=== PATIENT | male | born 1935 | race Caucasian/White ===

== ENCOUNTER 2017-03-03 18:13 | Emergency (ER) | payer OTHER, MEDICARE ==
[2017-03-03] MEDS ORDERED: LIDOCAINE 1% INJ-PF (10 MG/ML) 30 ML SDV INJ ONE (18:49)
--- NOTE | 2017-03-03 18:49 | ER Document Report ---
ED General - General Chief Complaint: Fall Stated Complaint: NOSE INJURY Time Seen by Provider: 03/03/17 18:49 Mode of Arrival: Ambulatory Information source: Patient Notes: 81-year-old male presents after mechanical fall injuring his nose. Patient notes that he has no chest pain or shortness breath no neck pain no back pain and any other complaints. Patient's only concern is laceration of the nose Patient does not want any imaging or any other workup TRAVEL OUTSIDE OF THE [place] IN LAST 30 DAYS: No - HPI Onset: Just prior to arrival Onset/Duration: Sudden Quality of pain: No pain Severity: Mild Pain Level: Denies Associated symptoms: Other Exacerbated by: Denies Relieved by: Denies Similar symptoms previously: No Recently seen / treated by doctor: No - Related Data Allergies/Adverse Reactions: Sulfa (Sulfonamide Antibiotics) Allergy (Severe, Verified 03/03/17 18:20) Unable to urinate Past Medical History - Social History Smoking Status: Never Smoker Cigarette use (# per day): No Chew tobacco use (# tins/day): No Smoking Education Provided: No Family History: Reviewed & Not Pertinent - Past Medical History Cardiac Medical History: Reports: Hx Heart Attack - 1981, Hx Hypertension - MEDICATED Pulmonary Medical History: Denies: Hx Asthma, Hx Bronchitis, Hx COPD, Hx Pneumonia Neurological Medical History: Denies: Hx Cerebrovascular Accident, Hx Seizures Renal/ Medical History: Denies: Hx Peritoneal Dialysis Malignancy Medical History: Reports Hx Prostate Cancer GI Medical History: Denies: Hx Hepatitis, Hx Hiatal Hernia, Hx Ulcer Musculoskeltal Medical History: 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 Denies: Hx Pacemaker - Immunizations Hx Diphtheria, Pertussis, Tetanus Vaccination: Yes Review of Systems - Review of Systems Notes: REVIEW OF SYSTEMS: CONSTITUTIONAL : Denies fever, chills, or sweats. Denies recent illness. EENT: nose injury CARDIOVASCULAR: Denies chest pain. Denies palpitations or racing or irregular heart beat. Denies ankle edema. RESPIRATORY: Denies cough, cold, or chest congestion. Denies shortness of breath, difficulty breathing, or wheezing. GASTROINTESTINAL: Denies abdominal pain or distention. Denies nausea, vomiting , or diarrhea. Denies blood in vomitus, stools, or per rectum. Denies black, tarry stools. Denies constipation. GENITOURINARY: Denies difficulty urinating, painful urination, burning, frequency, blood in urine, or discharge. MUSCULOSKELETAL: Denies back or neck pain or stiffness. Denies joint pain or swelling. SKIN: Denies rash, lesions or sores. HEMATOLOGIC : Denies easy bruising or bleeding. LYMPHATIC: Denies swollen, enlarged glands. NEUROLOGICAL: Denies confusion or altered mental status. Denies passing out or loss of consciousness. Denies dizziness or lightheadedness. Denies headache. Denies weakness or paralysis or loss of use of either side. Denies problems with gait or speech. Denies sensory loss, numbness, or tingling. Denies seizures. PSYCHIATRIC: Denies anxiety or stress. Denies depression, suicidal ideation, or homicidal ideation. ALL OTHER SYSTEMS REVIEWED AND NEGATIVE. Dictation was performed using [employer] voice recognition software PHYSICAL EXAMINATION: GENERAL: Well-appearing, well-nourished and in no acute distress. HEAD: Atraumatic, normocephalic. EYES: Pupils equal round and reactive to light, extraocular movements intact, sclera anicteric, conjunctiva are normal. ENT:laceration nose NECK: Normal range of motion, supple without lymphadenopathy LUNGS: Breath sounds clear to auscultation bilaterally and equal. No wheezes rales or rhonchi. HEART: Regular rate and rhythm without murmurs ABDOMEN: Soft, nontender, nondistended abdomen. No guarding, no rebound. No masses appreciated. Musculoskeletal: Normal range of motion, no pitting or edema. No cyanosis. NEUROLOGICAL: Cranial nerves grossly intact. Normal speech, normal gait. Normal sensory, motor exams PSYCH: Normal mood, normal affect. SKIN: laceration of the left nostril Physical Exam - Vital signs Vitals: Temp Pulse Resp BP Pulse Ox 97.7 F 72 18 157/69 H 97 03/03/17 18:18 03/03/17 18:18 03/03/17 18:18 03/03/17 18:18 03/03/17 18:18 Course - Re-evaluation Re-evalutation: 03/03/17 19:43 Patient does not want any imaging or other workup, he requests only repair of his nose, 3 sutures were placed, patient has been given very strict return precautions regarding infectious process After performing a Medical Screening Examination, I estimate there is LOW risk for OPEN FRACTURE, COMPARTMENT SYNDROME, TENDON RUPTURE, ACUTE NEUROVASCULAR INJURY, or RETAINED FOREIGN BODY, thus I consider the discharge disposition reasonable. Also, there is no evidence or peritonitis, sepsis, or toxicity. I have reevaluated this patient multiple times and no significant life threatening changes are noted. The patient and I have discussed the diagnosis and risks, and we agree with discharging home with close follow-up with the understanding that symptoms and presentations can change. We also discussed returning to the Emergency Department immediately if new or worsening symptoms occur. We have discussed the symptoms which are most concerning (e.g., changing or worsening pain, fever, numbness, weakness, cool or painful digits) that necessitate immediate return. - Vital Signs Vital signs: Temp Pulse Resp BP Pulse Ox 97.7 F 72 18 157/69 H 97 03/03/17 18:18 03/03/17 18:18 03/03/17 18:18 03/03/17 18:18 03/03/17 18:18 Procedures - Laceration/Wound Repair Left Face Time completed: 19:20 Wound length (cm): 1.3 Wound's Depth, Shape: Irregular, Flap Laceration pre-procedure: Sterile PPE donned, Sterile drapes applied, Shur- Clens applied Anesthetic type: 1% Lidocaine Volume Anesthetic (mLs): 3 Wound explored: Clean, No foreign body removed Irrigated w/ Saline (mLs): 500 Wound Debrided: Minimal Wound Repaired With: Sutures Suture Size/Type: 6:0, Ethilon Number of Sutures: 3 Post-procedure wound care: Sterile dressing applied Post-procedure NV exam normal: Yes Complications: No Discharge - Discharge Clinical Impression: Laceration of nose Qualifiers: Encounter type: initial encounter Qualified Code(s): S01.21XA - Laceration without foreign body of nose, initial encounter Condition: Stable Disposition: HOME, SELF-CARE Instructions: Laceration Care ([facility]) Additional Instructions: Follow-up in 5 days for removal screws or immediately if there is any sign of infection or any other concerns
[2017-03-03 20:17] VITALS: BP 130/82
== END 2017-03-03 20:15 | disposition home or self-care (01) ==
LOC: ER 18:13
PROC: 0HQ1XZZ Repair Face Skin, External Approach (ICD-10-PCS; principal; 2017-03-03)
DX: S01.21XA Laceration without foreign body of nose, initial encounter (principal); W01.0XXA Fall on same level from slipping, tripping and stumbling without subsequent striking against object, initial encounter; I10 Essential (primary) hypertension; I25.2 Old myocardial infarction; Z88.2 Allergy status to sulfonamides; Z95.1 Presence of aortocoronary bypass graft; Z85.46 Personal history of malignant neoplasm of prostate
CPT/HCPCS: 99283

== ENCOUNTER 2017-03-08 10:26 | Emergency (ER) | payer MEDICARE, OTHER ==
--- NOTE | 2017-03-08 11:32 | ER Document Report ---
ED Suture/Wound Recheck - General Chief Complaint: Suture Removal Stated Complaint: SUTURE REMOVAL Time Seen by Provider: 03/08/17 10:55 Mode of Arrival: Ambulatory Information source: Patient Notes: 81-year-old male presents to ED for removal of 3 sutures from his left nare. The sutures were placed 5 days ago when he had a laceration. Skin is well approximated no signs or symptoms of infection we will remove the sutures TRAVEL OUTSIDE OF THE [place] IN LAST 30 DAYS: No - HPI Previous ED treatment: Laceration repair Quality of pain: No pain Severity: None Pain Level: Denies Symptoms since procedure: No complaints Exacerbated by: Denies Relieved by: Denies - Related Data Allergies/Adverse Reactions: Sulfa (Sulfonamide Antibiotics) Allergy (Severe, Verified 03/03/17 18:20) Unable to urinate Past Medical History - General Information source: Patient - Social History Smoking Status: Never Smoker Cigarette use (# per day): No Chew tobacco use (# tins/day): No Smoking Education Provided: No Frequency of alcohol use: None Drug Abuse: None Lives with: Family Family History: Reviewed & Not Pertinent Patient has suicidal ideation: No Patient has homicidal ideation: No - Past Medical History Cardiac Medical History: Reports: Hx Heart Attack - 1981, Hx Hypertension - MEDICATED Pulmonary Medical History: Reports: None EENT Medical History: Reports: None Endocrine Medical History: Reports: None Renal/ Medical History: Reports: None Malignancy Medical History: Reports Hx Prostate Cancer GI Medical History: Reports: None Musculoskeltal Medical History: 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 Denies: Hx Hepatitis Past Surgical History: Reports: Hx Abdominal Surgery - hernia, colonoscopy, Hx Appendectomy, Hx Cardiac Surgery - CABG X 3, stent, cardiac cath, Hx Open Heart Surgery - TRIPLE BYPASS, Hx Orthopedic Surgery - left knee, right and left ankle , Hx Testicular Surgery - vasectomy, Hx Tonsillectomy - Immunizations Hx Diphtheria, Pertussis, Tetanus Vaccination: Yes Review of Systems - Review of Systems Constitutional: No symptoms reported EENT: No symptoms reported Cardiovascular: No symptoms reported Respiratory: No symptoms reported Gastrointestinal: No symptoms reported Genitourinary: No symptoms reported Male Genitourinary: No symptoms reported Musculoskeletal: No symptoms reported Skin: Other - 3 sutures in the left nare will remove Hematologic/Lymphatic: No symptoms reported Neurological/Psychological: No symptoms reported -: Yes All other systems reviewed and negative Physical Exam - Vital signs Vitals: Temp Pulse Resp BP Pulse Ox 97.3 F 87 16 135/96 H 98 03/08/17 10:40 03/08/17 10:40 03/08/17 10:40 03/08/17 10:40 03/08/17 10:40 Interpretation: Normal - General General appearance: Appears well, Alert - HEENT Head: Normocephalic, Atraumatic Eyes: Normal Pupils: PERRL - Respiratory Respiratory status: No respiratory distress Chest status: Nontender Breath sounds: Normal Chest palpation: Normal - Cardiovascular Rhythm: Regular Heart sounds: Normal auscultation Murmur: No - Abdominal Inspection: Normal Distension: No distension Bowel sounds: Normal Tenderness: Nontender Organomegaly: No organomegaly - Back Back: Normal, Nontender - Extremities General upper extremity: Normal inspection, Nontender, Normal color, Normal ROM , Normal temperature General lower extremity: Normal inspection, Nontender, Normal color, Normal ROM , Normal temperature, Normal weight bearing. No: Linus's sign - Neurological Neuro grossly intact: Yes Cognition: Normal Orientation: AAOx4 [place] Coma Scale Eye Opening: Spontaneous [place] Coma Scale Verbal: Oriented [place] Coma Scale Motor: Obeys Commands [place] Coma Scale Total: 15 Speech: Normal Motor strength normal: LUE, RUE, LLE, RLE Sensory: Normal - Psychological Associated symptoms: Normal affect, Normal mood - Skin Skin Temperature: Warm Skin Moisture: Dry Skin Color: Normal Location of irregularity: Face - Sutures intact skin healing well will remove sutures and applied Steri-Strips patient given instructions for care of Steri- Strips. Course - Re-evaluation Re-evalutation: 03/08/17 11:33 3 sutures removed patient tolerated well area was cleaned well Steri-Strip strips applied patient given instructions on Steri-Strip and told that he did not need to return unless there was signs or symptoms of infection. - Vital Signs Vital signs: Temp Pulse Resp BP Pulse Ox 97.3 F 87 16 135/96 H 98 03/08/17 10:40 03/08/17 10:40 03/08/17 10:40 03/08/17 10:40 03/08/17 10:40 Discharge - Discharge Clinical Impression: Visit for suture removal Condition: Stable Disposition: HOME, SELF-CARE Instructions: Suture Removal, Family Physicians / Practices Additional Instructions: Care of Steri-Strip Closure Your cut has been closed up with a special surgical tape. For this type of cut, it can replace stitches. You must protect the wound just as you would with stitches, however. For the first few days, keep the wound area completely dry. This also means you should avoid activity which makes you sweat. Do not move the area if motion stretches or wrinkles the strips. Don't allow the area to be bumped -- if bleeding occurs, the blood can make the strips loosen. The strips are somewhat waterproof. After a few days, the physician may allow you to shower. Be sure to ask if it's OK. Do not remove the tape until it peels off by itself. At that time, the wound should be healed. FOLLOW-UP CARE: If you have been referred to a physician for follow-up care, call the physician s office for an appointment as you were instructed or within the next two days. If you experience worsening or a significant change in your symptoms, notify the physician immediately or return to the Emergency Department at any time for re-evaluation. Forms: Elevated Blood Pressure
[2017-03-08 11:36] VITALS: BP 134/51
== END 2017-03-08 11:34 | disposition home or self-care (01) ==
LOC: ER 10:26
DX: S01.21XD Laceration without foreign body of nose, subsequent encounter (principal); X58.XXXD Exposure to other specified factors, subsequent encounter; I25.2 Old myocardial infarction; I10 Essential (primary) hypertension; Z88.2 Allergy status to sulfonamides; Z85.46 Personal history of malignant neoplasm of prostate

== ENCOUNTER → 2017-08-09 | Outpatient (CLI) | payer MEDICARE, OTHER ==
[2017-08-09 16:22] LABS: ABSOLUTE EOSINOPHILS # (AUTO) 0.1 10^3/uL (0.0-0.6); ABSOLUTE LYMPHOCYTES (AUTO) 1.6 10^3/uL (0.5-4.7); ABSOLUTE MONOCYTES (AUTO) 0.8 10^3/uL (0.1-1.4); ABSOLUTE NEUT (AUTO) 4.7 10^3/uL (1.7-8.2); BASOPHILS % (AUTO) 0.6 % (0-2); EOSINOPHILS % (AUTO) 1.6 % (0-6); HEMATOCRIT 45.4 % (37.9-51.0); LYMPHOCYTES % (AUTO) 22.7 % (13-45); MEAN CORPUSCULAR HEMOGLOBIN 31.4 pg (27.0-33.4); MEAN CORPUSCULAR VOLUME 95 fl (80-97); MONOCYTES % (AUTO) 10.6 % (3-13); PLATELET COUNT 117 10^3/uL (150-450); RED BLOOD COUNT 4.77 10^6/uL (4.35-5.55); RED CELL DISTRIBUTION WIDTH 14.8 % (11.5-14.0); SEGMENTED NEUTROPHILS % (AUTO) 64.5 % (42-78); TOTAL CELLS COUNTED % (AUTO) 100 %; WHITE BLOOD COUNT 7.2 10^3/uL (4.0-10.5)
[2017-08-09 16:36] LABS: ANION GAP 9 (5-19); BLOOD UREA NITROGEN 22 mg/dL (7-20); CALCIUM 9.5 mg/dL (8.4-10.2); CARBON DIOXIDE 27 mmol/L (22-30); CHLORIDE 107 mmol/L (98-107); GLUCOSE 85 mg/dL (75-110); POTASSIUM 5.1 mmol/L (3.6-5.0); SODIUM 143.2 mmol/L (137-145)
== END ==
LOC: OD 15:04
PROVIDERS: ATTEND Internal Medicine Cardiovascular Disease
DX: I25.10 Atherosclerotic heart disease of native coronary artery without angina pectoris (principal)
CPT/HCPCS: 36415; 80048; 85025

== ENCOUNTER 2017-12-14 05:30 | Day surgery (SDC) | payer MEDICARE, OTHER ==
[2017-12-10 09:47] LABS: APPEARANCE,URINE CLEAR; BILIRUBIN,URINE NEGATIVE (NEGATIVE); COLOR,URINE YELLOW; GLUCOSE, URINE NEGATIVE (NEGATIVE); KETONES,URINE NEGATIVE (NEGATIVE); LEUKOCYTE ESTERASE,URINE NEGATIVE (NEGATIVE); NITRITE,URINE NEGATIVE (NEGATIVE); PROTEIN,URINE NEGATIVE (NEGATIVE); URINE SPECIFIC GRAVITY 1.013; UROBILINOGEN,URINE NEGATIVE mg/dL (<2.0)
--- NOTE | 2017-12-10 09:54 | EKG REPORT ---
SEVERITY:- ABNORMAL ECG - ATRIAL FIBRILLATION VENTRICULAR PREMATURE COMPLEX IVCD, CONSIDER ATYPICAL RBBB PROBABLE INFERIOR INFARCT, OLD : Confirmed by: Reza Davis 10-Dec-2017 09:53:05
--- NOTE | 2017-12-10 09:56 | RADIOLOGY REPORT (SQ) ---
EXAM DESCRIPTION: CHEST PA/LATERAL COMPLETED DATE/TIME: 12/10/2017 9:25 am REASON FOR STUDY: PRE-OP COMPARISON: AP chest 04/12/2011, 11/10/2014 CT angio chest 04/12/2011 EXAM PARAMETERS: NUMBER OF VIEWS: two views TECHNIQUE: Digital Frontal and Lateral radiographic views of the chest acquired. RADIATION DOSE: NA LIMITATIONS: none FINDINGS: LUNGS AND PLEURA: Trace right pleural fluid in the lateral costophrenic sulcus. No acute infiltrates. No left pleural effusion. No pneumothorax. MEDIASTINUM AND HILAR STRUCTURES: No masses or contour abnormalities. HEART AND VASCULAR STRUCTURES: Mild cardiomegaly, post CABG BONES: No acute findings. HARDWARE: None in the chest. OTHER: No other significant finding. IMPRESSION: Trace right pleural fluid in the lateral costophrenic sulcus. Old sternotomy for CABG, mild stable cardiomegaly TECHNICAL DOCUMENTATION: JOB ID: [id number]- All Rights Reserved Reading location - IP/workstation name: [email or web address]
[2017-12-10 10:24] LABS: ABSOLUTE EOSINOPHILS # (AUTO) 0.1 10^3/uL (0.0-0.6); ABSOLUTE LYMPHOCYTES (AUTO) 1.9 10^3/uL (0.5-4.7); ABSOLUTE MONOCYTES (AUTO) 0.6 10^3/uL (0.1-1.4); ABSOLUTE NEUT (AUTO) 3.9 10^3/uL (1.7-8.2); BASOPHILS % (AUTO) 0.7 % (0-2); EOSINOPHILS % (AUTO) 1.6 % (0-6); HEMATOCRIT 43.4 % (37.9-51.0); HEMOGLOBIN 14.9 g/dL (13.5-17.0); LYMPHOCYTES % (AUTO) 28.5 % (13-45); MEAN CORPUSCULAR HEMOGLOBIN 32.2 pg (27.0-33.4); MEAN CORPUSCULAR HGB CONC 34.3 g/dL (32.0-36.0); MEAN CORPUSCULAR VOLUME 94 fl (80-97); MONOCYTES % (AUTO) 8.8 % (3-13); PLATELET COUNT 105 10^3/uL (150-450); RED BLOOD COUNT 4.62 10^6/uL (4.35-5.55); RED CELL DISTRIBUTION WIDTH 13.9 % (11.5-14.0); SEGMENTED NEUTROPHILS % (AUTO) 60.4 % (42-78); TOTAL CELLS COUNTED % (AUTO) 100 %; WHITE BLOOD COUNT 6.5 10^3/uL (4.0-10.5)
[2017-12-10 10:36] LABS: ANION GAP 9 (5-19); BLOOD UREA NITROGEN 19 mg/dL (7-20); CALCIUM 8.9 mg/dL (8.4-10.2); CARBON DIOXIDE 29 mmol/L (22-30); CHLORIDE 107 mmol/L (98-107); GLUCOSE 94 mg/dL (75-110); POTASSIUM 4.3 mmol/L (3.6-5.0); SODIUM 145.3 mmol/L (137-145)
[~2017-12-14 05:30] MED LIST: CEFAZOLIN 2 GM/D5W RTU 2 GM/50 ML RTUPB IV PRN; LACTATED RINGERS 1000 ML IV PRN; LIDOCAINE 0.5% INJ-PF (5 MG/ML) 50 ML SDV SUBCUT PRN
[2017-12-14 06:20] LABS: PROTHROMBIN TIME 14.7 SEC (11.4-15.4)
[2017-12-14 06:21] LABS: PARTIAL THROMBOPLASTIN TIME 31.6 SEC (23.5-35.8)
[2017-12-14] MEDS ORDERED: LIDOCAINE 1% INJ-PF (10 MG/ML) 30 ML SDV ONE (06:37)
[2017-12-14] MEDS ORDERED: BUPIVACAINE HCL 0.5 % INJ/PF 30 ML SDV ONE (06:37)
[2017-12-14] MEDS ORDERED: LIDOCAINE 2% INJ (20 MG/ML) 20 ML MDV ONE (07:02)
[2017-12-14] MEDS ORDERED: MIDAZOLAM 2 MG/2 ML INJ ONE (07:11)
[2017-12-14] MEDS ORDERED: KETAMINE HCL INJ 500 MG/10 ML VIAL ONE (07:11)
[2017-12-14] MEDS ORDERED: PROPOFOL INJ 200 MG/20 ML VIAL IV ONE (07:12)
[2017-12-14] MEDS ORDERED: FENTANYL CITRATE INJ/PF 100 MCG/2 ML AMPUL ONE (07:12)
[2017-12-14] MEDS ORDERED: OXYCODONE-ACETAMINOPHEN 5-325 MG TABLET PO PRN ×2 (07:30)
[2017-12-14] MEDS ORDERED: FENTANYL CITRATE INJ/PF 100 MCG/2 ML AMPUL IV PRN ×3 (07:30)
[2017-12-14] MEDS ORDERED: PROMETHAZINE HCL INJ 25 MG/1 ML VIAL IV PRN ×2 (07:30)
[2017-12-14] MEDS ORDERED: MEPERIDINE HCL/PF INJ 25 MG/1 ML DISP.SYRIN IV PRN (07:30)
[2017-12-14] MEDS ORDERED: DIPHENHYDRAMINE HCL 50 MG/ML VIAL IV PRN (07:30)
--- NOTE | 2017-12-14 08:02 | Discharge Summary ---
Discharge Summary (SDC) - Discharge Final Diagnosis: Left Middle/Ring Trigger Finger Date of Surgery: 12/14/17 Discharge Date: 12/14/17 Condition: Good Treatment or Instructions: Schedule Follow Up w/ Dr. Vivek Granados @ [facility] for Surgery to be seen in 10-14 days or as scheduled [place]: [place]: [place]: May remove dressing on postop day #3, keep incision covered and dry. Ice and elevate May begin finger range of motion attempting to make full fist. Stool softener of choice when on pain medication. Prescriptions: Hydrocodone/Acetaminophen [Kennedy 5-325 mg Tablet] 1 tab PO Q6 PRN #15 tablet PRN Reason: Referrals: KARSON MADRID MD [Primary Care Provider] - Discharge Diet: As Tolerated Respiratory Treatments at Home: Deep Breathing/Coughing Discharge Activity: No Lifting Over 10 Pounds, No Lifting/Push/Pulling Report the Following to Your Physician Immediately: Fever over 101 Degrees, Unusual Bleeding, Redness, Swelling, Warmth, Increased Soreness
[2017-12-14] MEDS ORDERED: HYDROCODONE/ACETAMINOPHEN 5-325 MG TABLET PO PRN (08:05)
[2017-12-14] MEDS ORDERED: ONDANSETRON HCL INJ/PF 4 MG/2 ML SDV IV PRN (08:05)
--- NOTE | 2017-12-14 08:05 | Operative Report ---
Operative Report DATE OF SURGERY: 12/14/17 PREOPERATIVE DIAGNOSIS: Left Middle/Ring Trigger Finger POSTOPERATIVE DIAGNOSIS: Same OPERATION: Left Middle/Ring A1 Vaishali Release SURGEON: MIKIE RAPHAEL ANESTHESIA: LMAC COMPLICATIONS: None ESTIMATED BLOOD LOSS: Minimal PROCEDURE: Procedure In Detail: Patient was seen and evaluated in the preoperative holding area. The LEFT upper extremity was initialized and marked. Patient received 2g of Ancef IV for bacterial prophylaxis. Patient was taken back to the operative room where transferred to the operative table. Once they were adequately anesthetized a nonsterile tourniquet was placed on the upper extremity. A surgical team debriefing was performed ensuring all instrumentation was available, the surgical procedure was discussed with possible concerns reviewed. A digital block was performed utilizing 10 mL 50:50 mixture of 1% lidocaine without epinephrine was injected in the middle/ring. The upper extremity was prepped with chlorhexidine and alcohol and draped in a sterile fashion. A timeout was done identifying correct patient, procedure and extremity everyone in attendance agree with this and verbalized no concerns. The extremity was exsanguinated the tourniquet was inflated to 200 mmHg. Longitudinal skin incision was made centered over the A1 vaishali of the ring finger. The radial and ulnar neurovascular bundles were identified and retracted from the wound. The A1 vaishali was identified and incised. The A1 vaishali was released to the level of the A2 vaishali but not through the A2 vaishali. The palmar aponeurotic vaishali was released proximal to the A1 vaishali. I then proceeded w/ a skin incision was made centered over the A1 vaishali of the middle finger. The radial and ulnar neurovascular bundles were identified and retracted from the wound. The A1 vaishali was identified and incised. The A1 vaishali was released to the level of the A2 vaishali but not through the A2 vaishali. The palmar aponeurotic vaishali was released proximal to the A1 vaishali. Patient was then awoken from MAC anesthesia and when making a full fist continued to have residual locking along the proximal aspect of the A2 vaishali thus the proximal approximately 10% was released. Patient once again attempted to make a full fist and there was no evidence of residual catching or locking. Gentle manipulation was performed to the ring and middle PIP joints correcting previous PIP contracture to neutral. The wound was then copiously irrigated with normal saline. Skin was closed with interrupted 4-0 nylon suture. Wound was dressed with Xeroform and a soft dressing.
[2017-12-14 09:59] VITALS: BP 130/73
== END 2017-12-14 09:50 | disposition home or self-care (01) ==
LOC: OROUT 05:30
PROVIDERS: ATTEND Orthopaedic Surgery
DX: M65.342 Trigger finger, left ring finger (principal); M65.332 Trigger finger, left middle finger; I11.9 Hypertensive heart disease without heart failure; E66.9 Obesity, unspecified; Z79.899 Other long term (current) drug therapy; Z79.82 Long term (current) use of aspirin; Z79.01 Long term (current) use of anticoagulants; Z87.898 Personal history of other specified conditions; Z88.2 Allergy status to sulfonamides; Z87.891 Personal history of nicotine dependence; Z68.39 Body mass index [BMI] 39.0-39.9, adult; I25.2 Old myocardial infarction
CPT/HCPCS: 93005; 36415 ×2; 84132; 85025; 85610; 85730; 80048; 81001; 71046; 93010; 26055 ×2; J2250; J3490 ×4; J3010; J2704; J0690; 1810

== ENCOUNTER 2018-02-20 21:11 | Emergency (ER) | payer MEDICARE, OTHER ==
[2018-02-20 21:17] VITALS: BP 156/80
[2018-02-20] MEDS ORDERED: AMOXICILLIN TR/POT CLAVULANATE 500-125 MG TAB PO ONE (22:15)
--- NOTE | 2018-02-20 22:43 | RADIOLOGY REPORT (SQ) ---
CT HEAD WITHOUT IV CONTRAST HISTORY: Trauma. COMPARISON: None. TECHNIQUE: CT scan of the brain. This exam was performed according to our departmental dose-optimization program, which includes automated exposure control, adjustment of the mA and/or kV according to patient size and/or use of iterative reconstruction technique. FINDINGS: The ventricles, cisterns, and sulci are age-appropriate. The hutchison-white matter differentiation is preserved without evidence of acute infarction. No acute intracranial hemorrhage or extra-axial fluid collection is seen. No midline shift, mass effect, or hydrocephalus. No air-fluid levels are seen in the sinuses. Right frontal scalp swelling. No underlying calvarial fracture is seen. IMPRESSION: Right frontal scalp swelling. No acute intracranial hemorrhage or skull fracture.
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
== END 2018-02-20 23:58 | disposition home or self-care (01) ==
LOC: ER 21:11
DX: S01.81XA Laceration without foreign body of other part of head, initial encounter (principal); S09.90XA Unspecified injury of head, initial encounter; S51.851A Open bite of right forearm, initial encounter; W50.3XXA Accidental bite by another person, initial encounter; Y00.XXXA Assault by blunt object, initial encounter; Y92.009 Unspecified place in unspecified non-institutional (private) residence as the place of occurrence of the external cause; I48.91 Unspecified atrial fibrillation; I10 Essential (primary) hypertension; E78.00 Pure hypercholesterolemia, unspecified; Z79.02 Long term (current) use of antithrombotics/antiplatelets; Z88.2 Allergy status to sulfonamides; I25.2 Old myocardial infarction; Z85.46 Personal history of malignant neoplasm of prostate; Z95.1 Presence of aortocoronary bypass graft
CPT/HCPCS: 99283; 70450; A9270

== ENCOUNTER 2018-04-20 12:50 | Inpatient (IN) | payer MEDICARE, OTHER ==
[2018-04-20 13:52] LABS: ABSOLUTE EOSINOPHILS # (AUTO) 0.1 10^3/uL (0.0-0.6); ABSOLUTE LYMPHOCYTES (AUTO) 1.4 10^3/uL (0.5-4.7); ABSOLUTE MONOCYTES (AUTO) 0.5 10^3/uL (0.1-1.4); ABSOLUTE NEUT (AUTO) 5.2 10^3/uL (1.7-8.2); BASOPHILS % (AUTO) 0.5 % (0-2); EOSINOPHILS % (AUTO) 0.8 % (0-6); HEMATOCRIT 45.5 % (37.9-51.0); HEMOGLOBIN 15.3 g/dL (13.5-17.0); LYMPHOCYTES % (AUTO) 19.8 % (13-45); MEAN CORPUSCULAR HGB CONC 33.5 g/dL (32.0-36.0); MEAN CORPUSCULAR VOLUME 96 fl (80-97); MONOCYTES % (AUTO) 7.6 % (3-13); PLATELET COUNT 107 10^3/uL (150-450); RED BLOOD COUNT 4.77 10^6/uL (4.35-5.55); RED CELL DISTRIBUTION WIDTH 14.5 % (11.5-14.0); SEGMENTED NEUTROPHILS % (AUTO) 71.3 % (42-78); TOTAL CELLS COUNTED % (AUTO) 100 %; WHITE BLOOD COUNT 7.2 10^3/uL (4.0-10.5)
[2018-04-20] MEDS ORDERED: IPRATROPIUM/ALBUTEROL 0.5-2.5 MG/3 ML AMPUL NEB ONE (14:04)
[2018-04-20] MEDS ORDERED: ALBUTEROL SULFATE 0.083% NEB 2.5 MG/3 ML AMPUL NEB ONE (14:04)
[2018-04-20 14:10] LABS: ANION GAP 7 (5-19); BLOOD UREA NITROGEN 16 mg/dL (7-20); CARBON DIOXIDE 31 mmol/L (22-30); CHLORIDE 103 mmol/L (98-107); GLUCOSE 101 mg/dL (75-110); POTASSIUM 4.6 mmol/L (3.6-5.0); SODIUM 141.3 mmol/L (137-145)
--- NOTE | 2018-04-20 14:10 | ER Document Report ---
ED Respiratory Problem - General Chief Complaint: Shortness Of Breath Stated Complaint: SHORTNESS OF BREATH Time Seen by Provider: 04/20/18 13:28 TRAVEL OUTSIDE OF THE [place] IN LAST 30 DAYS: No - HPI Notes: Patient is a 82-year-old male that presents to the emergency department for chief complaint of shortness of breath. Patient reports shortness of breath and cough for the last 1-2 weeks. He states his cough is nonproductive. He denies fevers or chills. His shortness of breath is worse when he is up ambulating and improved with rest. He denies history of COPD in the past or ever needing breathing treatments. Patient denies any associated chest pain and does have an extensive history of CAD requiring bypass and stenting. He denies known history of congestive heart failure. Patient denies any nausea, vomiting, palpitations, abdominal pain, numbness weakness and headaches. He states he has been compliant with home CPAP at night Past Medical History: CAD Past Surgical History: Coronary bypass, left knee replacement, appendectomy Social History: Denies drugs alcohol and tobacco Family History: Reviewed and noncontributory for presenting illness Allergies: Reviewed, see documented allergy list. REVIEW OF SYSTEMS: CONSTITUTIONAL : No fever No chills No diaphoresis No recent illness EENT: No vision changes No congestion No sore throat CARDIOVASCULAR: No chest pain No palpitations RESPIRATORY: shortness of breath cough difficulty breathing GASTROINTESTINAL: No abdominal pain No nausea No vomiting No diarrhea GENITOURINARY: No dysuria No hematuria No difficulty urinating MUSCULOSKELETAL: No back pain No leg pain No arm pain SKIN: No rashes No lesions LYMPHATIC: No swollen, enlarged glands. NEUROLOGICAL: No lightheadedness No headache No weakness No paresthesias PSYCHIATRIC: No anxiety No depression PHYSICAL EXAMINATION: Vital signs reviewed, nursing noted reviewed. GENERAL: Well-appearing, well-nourished and in no acute distress. HEAD: Atraumatic, normocephalic. EYES: Eyes appear normal, extraocular movements intact, sclera anicteric, conjunctiva are normal. ENT: nares patent, oropharynx clear without exudates. Moist mucous membranes. NECK: Normal range of motion, supple without lymphadenopathy LUNGS: Bilateral wheezing and decreased lung volumes. No accessory muscle use. No pursed lip breathing. HEART: Regular rate and rhythm without murmurs ABDOMEN: Soft, nontender, normoactive bowel sounds. No rebound, guarding, or rigidity. No masses appreciated. EXTREMITIES: Nontender, good range of motion, no pitting or edema. NEUROLOGICAL: No focal neurological deficits. Moves all extremities spontaneously Motor and sensory grossly intact on exam. PSYCH: Normal mood, normal affect. SKIN: Warm, Dry, normal turgor, no rashes or lesions noted on exposed skin - Related Data Allergies/Adverse Reactions: Sulfa (Sulfonamide Antibiotics) Allergy (Severe, Verified 03/03/17 18:20) Unable to urinate Past Medical History - Social History Smoking Status: Never Smoker Family History: Reviewed & Not Pertinent - Past Medical History Cardiac Medical History: Reports: Hx Heart Attack - 1981 , Hx Hypertension - MEDICATED Pulmonary Medical History: Denies: Hx Asthma, Hx Bronchitis, Hx COPD, Hx Pneumonia Neurological Medical History: Denies: Hx Cerebrovascular Accident, Hx Seizures Renal/ Medical History: Denies: Hx Peritoneal Dialysis Malignancy Medical History: Reports Hx Prostate Cancer GI Medical History: Denies: Hx Hepatitis, Hx Hiatal Hernia, Hx Ulcer Musculoskeletal Medical History: Denies Hx Arthritis Infectious Medical History: Denies: Hx Hepatitis Past Surgical History: Reports: Hx Abdominal Surgery - hernia, colonoscopy, Hx Appendectomy, Hx Cardiac Surgery - CABG X 3, stent, cardiac cath, Hx Open Heart Surgery - TRIPLE BYPASS, Hx Orthopedic Surgery - left knee, right and left ankle , Hx Testicular Surgery - vasectomy, Hx Tonsillectomy. Denies: Hx Pacemaker - Immunizations Hx Diphtheria, Pertussis, Tetanus Vaccination: Yes Review of Systems - Review of Systems Notes: Dictated Physical Exam - Notes Notes: Dictated Course - Re-evaluation Re-evalutation: 04/20/18 14:09 Vitals reviewed. Nursing notes reviewed. Patient given albuterol and DuoNeb for wheezing. 04/20/18 14:47 Patient reevaluated after DuoNeb and did have slight improvement. He will still received 2 albuterol treatments. Chest x-ray shows a moderately sized right pleural effusion with possible underlying pneumonia. Patient does not have sepsis criteria. He was started on Levaquin for pneumonia. Patient's lab work shows an elevation in troponin at 0.047, he was given aspirin in the emergency room. He has remained chest pain-free and his EKG shows no acute ischemic changes. Patient is very dyspneic with any exertion and will be admitted to the hospital for further evaluation of his pleural effusion dyspnea and elevated troponin. Case was discussed with Dr. Colunga who has accepted admission. CT scan of the chest was ordered to further evaluate patient's pleural effusion and need for possible thoracentesis, CT will be followed by admitting physician. Patient is in agreement with this plan and stable at time of admission. Laboratory 04/20/18 04/20/18 04/20/18 13:23 13:23 13:23 WBC 7.2 RBC 4.77 Hgb 15.3 Hct 45.5 MCV 96 MCH 32.0 MCHC 33.5 RDW 14.5 H Plt Count 107 L Seg Neutrophils % 71.3 Lymphocytes % 19.8 Monocytes % 7.6 Eosinophils % 0.8 Basophils % 0.5 Absolute Neutrophils 5.2 Absolute Lymphocytes 1.4 Absolute Monocytes 0.5 Absolute Eosinophils 0.1 Absolute Basophils 0.0 Sodium 141.3 Potassium 4.6 Chloride 103 Carbon Dioxide 31 H Anion Gap 7 BUN 16 Creatinine 1.09 Est GFR ( Amer) > 60 Est GFR (Non-Af Amer) > 60 Glucose 101 Calcium 9.0 Troponin I 0.047 Chest X-Ray 04/20/18 13:28 IMPRESSION: Small to moderate right pleural effusion with right lower lobe airspace disease - Laboratory Result Diagrams: 04/20/18 13:23 04/20/18 13:23 Laboratory results interpreted by me: 04/20/18 04/20/18 13:23 13:23 RDW 14.5 H Plt Count 107 L Carbon Dioxide 31 H - EKG Interpretation by Me Additional EKG results interpreted by me: 04/20/18 14:10 Interpreted by myself 1301: Atrial fibrillation, rate 93, left axis, borderline prolonged QT at 488 no significant change from 12/10/17 Discharge - Discharge Clinical Impression: Pleural effusion, right, Elevated troponin Dyspnea Qualifiers: Dyspnea type: dyspnea on exertion Qualified Code(s): R06.09 - Other forms of dyspnea Pneumonia Qualifiers: Pneumonia type: due to unspecified organism Laterality: right Lung location: lower lobe of lung Qualified Code(s): J18.1 - Lobar pneumonia, unspecified organism Condition: Stable Disposition: ADMITTED INPATIENT Admitting Provider: Hospitalist Unit Admitted: Telemetry
--- NOTE | 2018-04-20 14:12 | RADIOLOGY REPORT (SQ) ---
EXAM DESCRIPTION: CHEST SINGLE VIEW COMPLETED DATE/TIME: 04/20/2018 2:03 pm REASON FOR STUDY: SOB COMPARISON: Chest films 12/10/2017, 11/10/2014 EXAM PARAMETERS: NUMBER OF VIEWS: One view. TECHNIQUE: Single frontal radiographic view of the chest acquired. RADIATION DOSE: NA LIMITATIONS: None. FINDINGS: LUNGS AND PLEURA: There is a small to moderate right pleural effusion in the lateral costo phrenic sulcus, major fissure and minor fissure. There is airspace disease in the right lower lobe atelectasis versus pneumonia. Left lung clear. No left pleural effusion. No right or left pneumothorax MEDIASTINUM AND HILAR STRUCTURES: No masses. Contour normal. HEART AND VASCULAR STRUCTURES: Old sternotomy and CABG with stable mild cardiomegaly BONES: No acute findings. HARDWARE: None in the chest. OTHER: No other significant finding. IMPRESSION: Small to moderate right pleural effusion with right lower lobe airspace disease TECHNICAL DOCUMENTATION: JOB ID: [id number] [employer]- All Rights Reserved Reading location - IP/workstation name: [email or web address]
[2018-04-20] MEDS ORDERED: LEVOFLOXACIN 750 MG/D5W RTU 750 MG/150 ML RTUPB IV ONE (14:25)
[2018-04-20] MEDS ORDERED: ASPIRIN 81 MG TABLET, CHEWABLE PO ONE (14:45)
[2018-04-20] MEDS ORDERED: HYDROCODONE/ACETAMINOPHEN 5-325 MG TABLET PO PRN (15:30)
[2018-04-20] MEDS ORDERED: NITROGLYCERIN 0.4 MG/TAB 25 TAB/BOTTLE SL PRN (15:30)
[2018-04-20] MEDS ORDERED: FUROSEMIDE INJ/PF 40 MG/4 ML SDV IV ONE (15:40)
--- NOTE | 2018-04-20 15:51 | PDOC H&P ---
History of Present Illness Admission Date/PCP: 04/20/18 15:10 [facility] History of Present Illness: TANNER JOSE is a 82 year old male with a history of coronary artery disease with ME x3, status post CABG, and chronic atrial fibrillation who presents with a 3-week history of progressive dyspnea, especially with exertion. He has not had any fever. He said recently he has developed a cough. It has not been productive. He said for the last several months he usually has some swelling around his ankles but it has gotten worse recently. He says he cannot lay down flat without his shortness of breath getting worse. He says that he will sometimes use his CPAP during the day to help him catch his breath. He is not a very good historian, but he does not recall anyone telling him that he has heart failure. 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 His labs were fairly unremarkable with the exception of a very mildly elevated troponin, but his chest film shows what looks like a right-sided pleural effusion with some compressive atelectasis, and also some bilateral interstitial markings that look like pulmonary edema. Past Medical History Cardiac Medical History: Reports: Myocardial Infarction - 1981 , Hypertension - MEDICATED Pulmonary Medical History: Denies: Asthma, Bronchitis, Chronic Obstructive Pulmonary Disease (COPD), Pneumonia Neurological Medical History: Denies: Seizures GI Medical History: Denies: Hepatitis, Hiatal Hernia Musculoskeltal Medical History: Denies: Arthritis Hematology: Denies: Anemia Past Surgical History Past Surgical History: Reports: Appendectomy, Orthopedic Surgery - left knee, right and left ankle, Tonsillectomy Denies: Pacemaker Social History Smoking Status: Never Smoker Family History Family History: Reviewed & Not Pertinent Parental Family History Reviewed: No - He is not sure Children Family History Reviewed: Unknown Sibling(s) Family History Reviewed.: Unknown Medication/Allergy Home Medications: Aspirin [Aspirin 81 mg Chewable Tablet] 81 mg PO DAILY 04/12/11 Cholecalciferol (Vitamin D3) [Vitamin D] 1,000 unit PO DAILY 04/12/11 Doxazosin Mesylate [Cardura] 4 mg PO BID 04/12/11 Furosemide [Lasix 40 mg Tablet] 60 mg PO QAM 04/12/11 Irbesartan [Avapro] 150 mg PO DAILY 04/12/11 Isosorbide Mononitrate [Ismo] 30 mg PO BID 04/12/11 Nitroglycerin [Nitrostat 0.4 mg (1/150 Gr) Tabs 25/Bottle] 0.4 mg SL PRN PRN 12/04 Potassium Chloride [Klor-Con 10 Meq Capsule ER] 10 meq PO DAILY 04/12/11 Allopurinol [Zyloprim] 300 mg PO DAILY 12/07/17 Apixaban [Eliquis] 5 mg PO DAILY 12/07/17 Aspirin [Adult Aspirin] 81 mg PO DAILY 12/07/17 Atorvastatin Calcium [Lipitor 40 mg Tablet] 40 mg PO DAILY 12/07/17 Hydrocodone/Acetaminophen [[place] 5-325 mg Tablet] 1 tab PO Q6 PRN #15 tablet Amox Tr/Potassium Clavulanate [Augmentin 875-125 Tablet] 1 tab PO BID 5 Days tablet 02/20/18 Allergies/Adverse Reactions: Sulfa (Sulfonamide Antibiotics) Allergy (Severe, Verified 03/03/17 18:20) Unable to urinate Review of Systems Review of Systems: A 10 point review of systems was conducted with the patient and was negative except as noted in the HPI Physical Exam General appearance: PRESENT: cooperative, disheveled, mild distress, morbidly obese Head exam: PRESENT: atraumatic, normocephalic Eye exam: PRESENT: conjunctiva pink, EOMI, PERRLA. ABSENT: conjunctival injection, nystagmus, scleral icterus Ear exam: PRESENT: normal external ear exam Mouth exam: PRESENT: moist, neck supple Throat exam: ABSENT: post pharyngeal erythema Neck exam: PRESENT: full ROM, JVD. ABSENT: lymphadenopathy, meningismus, tenderness, thyromegaly Respiratory exam: PRESENT: crackles - Bilateral, decreased breath sounds - Especially in the right base. ABSENT: rhonchi, unlabored, wheezes Cardiovascular exam: PRESENT: irregular rhythm Pulses: PRESENT: normal carotid pulses, normal radial pulses Vascular exam: PRESENT: normal capillary refill GI/Abdominal exam: PRESENT: normal bowel sounds, soft. ABSENT: guarding, rebound, tenderness Rectal exam: PRESENT: deferred Extremities exam: PRESENT: full ROM, pedal edema, other - 4+ bilateral pitting edema up to the knees Musculoskeletal exam: PRESENT: ambulatory, full ROM. ABSENT: deformity Neurological exam: PRESENT: alert, awake, oriented to person, oriented to place , oriented to time, CN II-XII grossly intact. ABSENT: motor sensory deficit Psychiatric exam: PRESENT: appropriate affect, normal mood Skin exam: PRESENT: dry, warm Results Impressions: Chest X-Ray 04/20/18 13:28 IMPRESSION: Small to moderate right pleural effusion with right lower lobe airspace disease Assessment & Plan - Diagnosis (1) Dyspnea Qualifiers: Dyspnea type: acute respiratory distress Qualified Code(s): R06.03 - Acute respiratory distress Is this a current diagnosis for this admission?: Yes Plan: I believe this patient has acute heart failure. He has a very strong history of coronary artery disease and ME, he has chronic atrial fibrillation, and his history and examination are all suggestive of of heart failure. I have ordered a BNP and an echocardiogram. I am going to go ahead and give him a dose of IV Lasix and monitor his response. It does not appear that he was on any sort of beta-diane at home and so I am going to start him on Coreg, and I will continue his ARB, aspirin, statin, long-acting nitrate, and we will give him IV Lasix twice a day. His history is not really suggestive of a pneumonia so I am not going to continue antibiotics on him. If he begins to show signs of an infectious process then I will obviously adjust course. (2) Pleural effusion, right Is this a current diagnosis for this admission?: Yes Plan: I believe that this is secondary to the above. A CTA of the chest has been ordered and if it suggests some alternate etiology than as noted above, I will adjust course. (3) Elevated troponin Is this a current diagnosis for this admission?: Yes Plan: I do not think this is from acute ischemia. I think it is probably more troponin spillage from fluid overload strain. We will trend out his troponins and if they elevate then we will likely get cardiology involved. - Time Time Spent: Greater than 70 Minutes - Inpatient Certification Based on my medical assessment, after consideration of the patient's comorbidities, presenting symptoms, or acuity I expect that the services needed warrant INPATIENT care.: Yes I certify that my determination is in accordance with my understanding of Medicare's requirements for reasonable and necessary INPATIENT services [42 CFR 412.3e].: Yes Medical Necessity: Need Close Monitoring Due to Risk of Patient Decompensation, Need For Continuous Telemetry Monitoring, Risk of Complication if Not Cared For in Hospital, Risk of Diagnosis Which Will Require Inpatient Eval/Care/Monitoring
[2018-04-20] MEDS ORDERED: ISOSORBIDE MONONITRATE 20 MG TABLET PO SCH (18:00)
[2018-04-20] MEDS: DOXAZOSIN MESYLATE 4 MG TABLET PO SCH (18:06)
--- NOTE | 2018-04-20 20:16 | RADIOLOGY REPORT (SQ) ---
EXAM DESCRIPTION: CTA CHEST COMPLETED DATE/TIME: 04/20/2018 6:38 pm REASON FOR STUDY: shortness of breath COMPARISON: CT angiogram chest 04/12/2011, chest x-ray 04/20/2018. TECHNIQUE: CT scan of the chest performed using helical scanning technique with dynamic intravenous contrast injection. Images reviewed with lung, soft tissue and bone windows. Reconstructed coronal and sagittal MPR images reviewed. Additional 3 dimensional post-processing performed to develop Maximal Intensity Projection images (AZ P). All images stored on PACS. All CT scanners at this facility use dose modulation, iterative reconstruction, and/or weight based d osing when appropriate to reduce radiation dose to as low as reasonably achievable (ALARA). [facility]: Dose Right [facility]: CareDose [facility]: Dose Right [facility]: Teradose 4D [facility]: [employer] CONTRAST TYPE AND DOSE: contrast/concentration: Isovue 350.00 mg/ml; Total Contrast Delivered: 77.0 ml; Total Saline Delivered: 110.0 ml Contrast bolus optimized for the pulmonary arteries. Not diagnostic for the aorta. RENAL FUNCTION: Creatinine 1.09 RADIATION DOSE: CT Rad equipment meets quality standard of care and radiation dose reduction techniq ues were employed. CTDIvol: 15.6 - 45.1 mGy. DLP: 642 mGy-cm. . LIMITATIONS: There is motion artifact. FINDINGS: LUNGS AND PLEURA: There is a moderate right-sided pleural effusion with atelectasis at the right lower lobe there is subsegmental atelectasis at the right upper lobe and right middle lobes. There is a small left pleural effusion. No pneumothorax. There is a 6 mm bilobed nodule at the ante rior right upper lobe, not significantly changed since the prior CT angiogram from 04/12/2011, sugges tive of benign etiology. AORTA AND GREAT VESSELS: Atherosclerotic calcifications are noted at the thoracic aorta. No thoraci c aortic aneurysm. Contrast bolus not optimized for the aorta. HEART: The heart is enlarged. No pericardial effusion. Prior CABG. PULMONARY ARTERIES: No emboli visualized in the main pulmonary arteries or the segmental branches at the left lung. Limited evaluation for pulmonary emboli at the right lower lobe. HILAR AND MEDIASTINAL STRUCTURES: No identified masses or abnormal nodes. HARDWARE: None in the chest. UPPER ABDOMEN: There is a 2.7 x 2.4 cm fat density nodule at the left adrenal gland, suggestive of a myelolipoma. THYROID AND OTHER SOFT TISSUES: No masses. No adenopathy. BONES: Multilevel degenerative changes are noted at the spine. 3D MIPS: Confirm above findings. IMPRESSION: 1. Moderate right-sided pleural effusion with atelectasis at the right lower lobe, warren iting evaluation for pulmonary emboli at the right lower lobe. No evidence for central pulmonary emb samina or pulmonary emboli at the left lung. If clinical concern persists, a ventilation-perfusion scan or a follow-up CT angiogram chest can be obtained. 2. Subsegmental atelectasis at the right upper lobe and right middle lobe. 3. Small left pleural effusion. 4. Stable 6 mm bilobed pulmonary nodule at the anterior right upper lobe, suggestive of benign etiol ogy. 5. Cardiomegaly. 6. Left adrenal myelolipoma. COMMENT: Quality ID # [id number]: Final reports with documentation of one or more dose reduction techniques (e.g., Automated exposure control, adjustment of the mA and/or kV according to patient size, use of iterative reconstruction technique) TECHNICAL DOCUMENTATION: JOB ID: [id number] [employer]- All Rights Reserved Reading location - IP/workstation name: [email or web address]
[2018-04-20] MEDS: CARVEDILOL 6.25 MG TABLET PO SCH (21:09)
[2018-04-20] MEDS: ISOSORBIDE MONONITRATE 30 MG TAB.ER.24H PO SCH (21:09)
[2018-04-20] MEDS: FUROSEMIDE INJ/PF 40 MG/4 ML SDV IV SCH (21:10)
--- NOTE | 2018-04-20 21:41 | EKG REPORT ---
SEVERITY:- ABNORMAL ECG - ATRIAL FIBRILLATION IVCD, CONSIDER ATYPICAL RBBB PROBABLE INFERIOR INFARCT, OLD : Confirmed by: Tasha العراقي MD 20-Apr-2018 21:40:30
[2018-04-21 05:13] LABS: ABSOLUTE BASOPHILS # (AUTO) 0.1 10^3/uL (0.0-0.2); ABSOLUTE EOSINOPHILS # (AUTO) 0.1 10^3/uL (0.0-0.6); ABSOLUTE LYMPHOCYTES (AUTO) 1.5 10^3/uL (0.5-4.7); ABSOLUTE MONOCYTES (AUTO) 0.8 10^3/uL (0.1-1.4); ABSOLUTE NEUT (AUTO) 5.4 10^3/uL (1.7-8.2); BASOPHILS % (AUTO) 0.7 % (0-2); EOSINOPHILS % (AUTO) 1.3 % (0-6); HEMATOCRIT 41.7 % (37.9-51.0); LYMPHOCYTES % (AUTO) 18.8 % (13-45); MEAN CORPUSCULAR HEMOGLOBIN 32.1 pg (27.0-33.4); MEAN CORPUSCULAR HGB CONC 33.7 g/dL (32.0-36.0); MEAN CORPUSCULAR VOLUME 95 fl (80-97); MONOCYTES % (AUTO) 10.1 % (3-13); PLATELET COUNT 109 10^3/uL (150-450); RED BLOOD COUNT 4.38 10^6/uL (4.35-5.55); RED CELL DISTRIBUTION WIDTH 14.6 % (11.5-14.0); SEGMENTED NEUTROPHILS % (AUTO) 69.1 % (42-78); TOTAL CELLS COUNTED % (AUTO) 100 %; WHITE BLOOD COUNT 7.8 10^3/uL (4.0-10.5)
[2018-04-21 05:21] LABS: ALANINE AMINOTRANSFERASE 24 U/L (21-72); ALBUMIN 3.1 g/dL (3.5-5.0); ALKALINE PHOSPHATASE 75 U/L (38-126); ANION GAP 10 (5-19); ASPARTATE AMINO TRANSFERASE 18 U/L (17-59); BILIRUBIN,DIRECT 0.3 mg/dL (0.0-0.4); BILIRUBIN,TOTAL 0.9 mg/dL (0.2-1.3); BLOOD UREA NITROGEN 20 mg/dL (7-20); CALCIUM 8.9 mg/dL (8.4-10.2); CARBON DIOXIDE 28 mmol/L (22-30); CHLORIDE 105 mmol/L (98-107); CHOLESTEROL 75.03 mg/dL (0-200); GLUCOSE 85 mg/dL (75-110); POTASSIUM 4.4 mmol/L (3.6-5.0); SODIUM 142.5 mmol/L (137-145); TOTAL PROTEIN 5.5 g/dL (6.3-8.2); TRIGLYCERIDES 40 mg/dL (<150)
[2018-04-21 05:32] LABS: DIRECT LDL 48 mg/dL (<100)
[2018-04-21] MEDS ORDERED: (PENDING PHARMACY ID) (Irbesartan [Avapro] 150 MG) PO SCH (10:00)
[2018-04-21] MEDS: APIXABAN 5 MG TABLET PO SCH (11:39)
[2018-04-21] MEDS: POTASSIUM CHLORIDE 10 MEQ CAPSULE.ER PO SCH (11:39)
[2018-04-21] MEDS: ASPIRIN 81 MG TABLET, ENT COATED PO SCH (11:39)
[2018-04-21] MEDS: ISOSORBIDE MONONITRATE 30 MG TAB.ER.24H PO SCH ×2 (11:39→22:25)
[2018-04-21] MEDS: ALLOPURINOL 300 MG TABLET PO SCH (11:40)
[2018-04-21] MEDS: CHOLECALCIFEROL (D3) 1,000 UNIT TABLET PO SCH (11:40)
[2018-04-21] MEDS: DOXAZOSIN MESYLATE 4 MG TABLET PO SCH ×2 (11:40→17:17)
[2018-04-21] MEDS: LOSARTAN POTASSIUM 50 MG TABLET PO SCH (11:40)
[2018-04-21] MEDS: CARVEDILOL 6.25 MG TABLET PO SCH ×2 (11:40→22:24)
[2018-04-21] MEDS: FUROSEMIDE INJ/PF 40 MG/4 ML SDV IV SCH ×2 (11:41→22:25)
[2018-04-21] MEDS: ATORVASTATIN CALCIUM 40 MG TABLET PO SCH (11:41)
--- NOTE | 2018-04-21 12:51 | XCELERA REPORT ---
[address] [address] Transthoracic Echocardiogram Report Name: TANNER JOSE Age: 82 yrs Gender: Male : 1935 Patient Status: Inpatient Patient Location: [address] [place] [address] Study Date: 04/21/2018 10:21 AM Procedure: A two-dimensional transthoracic echocardiogram with color flow and Doppler was performed. Study Quality: Technically suboptimal. The study was technically difficult with many images being suboptimal in quality. Reason For Study: dyspnea History: dyspnea. Ordering Physician: SAMARA TORRES Performed By: Kyra Turner Interpretation Summary LV EF is 20% Left ventricular systolic function is severely reduced. There is severe global hypokinesis of the left ventricle. The left ventricle is moderately dilated. There is normal left ventricular wall thickness. The right ventricle is moderately dilated. The right ventricular systolic function is severely reduced. The right atrium is mild to moderately dilated. The left atrium is moderately dilated. There is no evidence of mitral valve prolapse. There is no vegetation seen on the mitral valve. There is no mitral valve stenosis. There is a mild amount of mitral regurgitation There is no aortic valve stenosis There is no LVOT obstruction. No aortic regurgitation is present. There is no tricuspid stenosis. There is a trace to mild amount of tricuspid regurgitation There is mild pulmonary hypertension by echo RVSP is 40 to 45 mm of Hg , with RA mean of 15 to 20.Note most likely there is underestimation of the RVSP due to undersampling of the TR jet. There is a trace amount of pulmonic regurgitation There is no pulmonic valvular stenosis. The inferior vena cava appeared dilated and decreased < 50% with respiration (RAP 15-20 mmHg) There is no pericardial effusion. MMode/2D Measurements & Calculations RVDd: 3.7 cm LVIDd: 6.1 cm FS: 9.5 % Ao root diam: 3.1 cm IVSd: 0.79 cm LVIDs: 5.5 cm EDV(Teich): 186.3 ml Ao root area: 7.4 cm2 LVPWd: 0.93 cm ESV(Teich): 148.1 ml EF(Teich): 20.5 % LA dimension: 5.2 cm LVOT diam: 1.6 cm LVOT area: 2.1 cm2 Doppler Measurements & Calculations MV E max stephanie: MV P1/2t max stephanie: Ao V2 max: LV V1 max P.2 cm/sec 118.1 cm/sec 77.8 cm/sec 2.0 mmHg MV A max stephanie: MV P1/2t: 112.9 msec Ao max P.4 mmHgLV V1 max: 67.1 cm/sec 71.1 cm/sec MV E/A: 1.5 MVA(P1/2t): 1.9 cm2 JORGE(V,D): 1.9 cm2 MV dec slope: 306.2 cm/sec2 MV dec time: 0.15 sec MR max stephanie: PA V2 max: PI end-d stephanie: TR max stephanie: 358.3 cm/sec 119.4 cm/sec 171.7 cm/sec 247.0 cm/sec MR max PG: PA max P.7 mmHg TR max P.4 mmHg 24.4 mmHg MV P1/2t-pr_phl: 112.9 msec Left Ventricle The left ventricle is moderately dilated. There is normal left ventricular wall thickness. LV EF is 20%. Left ventricular systolic function is severely reduced. There is severe global hypokinesis of the left ventricle. Right Ventricle The right ventricle is moderately dilated. The right ventricular systolic function is severely reduced. Atria The right atrium is mild to moderately dilated. The left atrium is moderately dilated. Mitral Valve There is no evidence of mitral valve prolapse. There is no vegetation seen on the mitral valve. There is no mitral valve stenosis. There is a mild amount of mitral regurgitation. Aortic Valve There is no aortic valvular vegetation. There is no aortic valve stenosis. There is no LVOT obstruction. No aortic regurgitation is present. Tricuspid Valve There is no tricuspid stenosis. There is a trace to mild amount of tricuspid regurgitation. There is mild pulmonary hypertension by echo. RVSP is 40 to 45 mm of Hg , with RA mean of 15 to 20.Note most likely there is underestimation of the RVSP due to undersampling of the TR jet. Pulmonic Valve There is no pulmonic valvular stenosis. There is a trace amount of pulmonic regurgitation. Great Vessels The aortic root is not well visualized. The inferior vena cava appeared dilated and decreased < 50% with respiration (RAP 15-20 mmHg). Effusions There is no pericardial effusion. : SAMARA TORRES Lakshmi
--- NOTE | 2018-04-21 14:22 | PDOC PROGRESS REPORT ---
Subjective Progress Note for:: 04/21/18 Subjective:: No adverse events overnight. He has had a net negative fluid balance of over 1000 mL's. He said he feels like it is "breaking up." He says his breathing is a little bit better but he still cannot lay down flat. He can rest comfortably using his CPAP. He feels like his speech is a little bit easier he does not get as short of breath, but he said he still got really short of breath when he walks just a few feet from the bed to the bathroom. Reason For Visit: SUSPECTED ACUTE DECOMPENSATED HEART FAILURE Physical Exam Vital Signs: Temp Pulse Resp BP Pulse Ox 97.5 F 80 20 149/82 H 99 04/21/18 11:07 04/21/18 11:07 04/21/18 11:07 04/21/18 11:07 04/21/18 11:07 Intake & Output 04/20/18 04/21/18 04/22/18 06:59 06:59 06:59 Intake Total 2065 218 Output Total 3050 200 Balance -985 18 Weight 117.8 kg General appearance: PRESENT: cooperative, disheveled, mild distress, morbidly obese Respiratory exam: PRESENT: crackles - Bilateral but slightly improved compared to yesterday's exam, decreased breath sounds - Especially in the right base. ABSENT: rhonchi, unlabored, wheezes Cardiovascular exam: PRESENT: irregular rhythm Pulses: PRESENT: normal carotid pulses, normal radial pulses Vascular exam: PRESENT: normal capillary refill GI/Abdominal exam: PRESENT: normal bowel sounds, soft. ABSENT: guarding, rebound, tenderness Extremities exam: PRESENT: full ROM, pedal edema, other - 4+ bilateral pitting edema up to the knees Musculoskeletal exam: PRESENT: ambulatory, full ROM. ABSENT: deformity Neurological exam: PRESENT: alert, awake, oriented to person, oriented to place , oriented to time Psychiatric exam: PRESENT: appropriate affect, normal mood Skin exam: PRESENT: dry, warm Results Laboratory Results: 04/21/18 04:24 04/21/18 04:24 04/21/18 04/21/18 04:24 04:24 WBC 7.8 RBC 4.38 Hgb 14.0 Hct 41.7 MCV 95 MCH 32.1 MCHC 33.7 RDW 14.6 H Plt Count 109 L Seg Neutrophils % 69.1 Lymphocytes % 18.8 Monocytes % 10.1 Eosinophils % 1.3 Basophils % 0.7 Absolute Neutrophils 5.4 Absolute Lymphocytes 1.5 Absolute Monocytes 0.8 Absolute Eosinophils 0.1 Absolute Basophils 0.1 Sodium 142.5 Potassium 4.4 Chloride 105 Carbon Dioxide 28 Anion Gap 10 BUN 20 Creatinine 1.28 H Est GFR ( Amer) > 60 Est GFR (Non-Af Amer) 54 L Glucose 85 Calcium 8.9 Magnesium 2.0 Total Bilirubin 0.9 AST 18 ALT 24 Alkaline Phosphatase 75 Total Protein 5.5 L Albumin 3.1 L Triglycerides 40 Cholesterol 75.03 LDL Cholesterol Direct 48 VLDL Cholesterol 8.0 L HDL Cholesterol 38 L 04/20/18 04/20/18 04/21/18 16:16 22:20 04:24 Troponin I 0.047 0.068 0.072 Impressions: Chest X-Ray 04/20/18 13:28 IMPRESSION: Small to moderate right pleural effusion with right lower lobe airspace disease Chest/Abdomen CTA 04/20/18 14:29 IMPRESSION: 1. Moderate right-sided pleural effusion with atelectasis at the right lower lobe, limiting evaluation for pulmonary emboli at the right lower lobe. No evidence for central pulmonary emboli or pulmonary emboli at the left lung. If clinical concern persists, a ventilation-perfusion scan or a follow- up CT angiogram chest can be obtained. 2. Subsegmental atelectasis at the right upper lobe and right middle lobe. 3. Small left pleural effusion. 4. Stable 6 mm bilobed pulmonary nodule at the anterior right upper lobe, suggestive of benign etiology. 5. Cardiomegaly. 6. Left adrenal myelolipoma. Assessment & Plan - Diagnosis (1) Acute combined systolic and diastolic CHF, NYHA class 3 Is this a current diagnosis for this admission?: Yes Plan: We continue with IV Lasix, Coreg, ARB, aspirin and statin. Supplemental oxygen as needed. Cardiology consult is pending. He will likely need some sort of cardiac workup, and may need evaluation for an AICD. We are trying to obtain records from his last 2 cardiac catheterizations. (2) Pleural effusion, right Is this a current diagnosis for this admission?: Yes Plan: CTA of the chest was negative for PE or some sort of underlying mass. This is likely all from heart failure. (3) Elevated troponin Is this a current diagnosis for this admission?: Yes Plan: Most likely just troponin leakage from ventricular strain from volume overload. He is on aspirin and statin. Cardiology consultation is pending. He is not complaining of any chest pain. - Time Time Spent with patient: 25-34 minutes
[2018-04-22 06:24] LABS: ABSOLUTE EOSINOPHILS # (AUTO) 0.2 10^3/uL (0.0-0.6); ABSOLUTE LYMPHOCYTES (AUTO) 1.4 10^3/uL (0.5-4.7); ABSOLUTE MONOCYTES (AUTO) 0.6 10^3/uL (0.1-1.4); ABSOLUTE NEUT (AUTO) 4.2 10^3/uL (1.7-8.2); BASOPHILS % (AUTO) 0.7 % (0-2); EOSINOPHILS % (AUTO) 2.5 % (0-6); HEMATOCRIT 39.9 % (37.9-51.0); HEMOGLOBIN 13.5 g/dL (13.5-17.0); LYMPHOCYTES % (AUTO) 21.9 % (13-45); MEAN CORPUSCULAR HEMOGLOBIN 32.1 pg (27.0-33.4); MEAN CORPUSCULAR HGB CONC 33.8 g/dL (32.0-36.0); MEAN CORPUSCULAR VOLUME 95 fl (80-97); MONOCYTES % (AUTO) 9.2 % (3-13); RED CELL DISTRIBUTION WIDTH 14.2 % (11.5-14.0); SEGMENTED NEUTROPHILS % (AUTO) 65.7 % (42-78); TOTAL CELLS COUNTED % (AUTO) 100 %; WHITE BLOOD COUNT 6.4 10^3/uL (4.0-10.5)
[2018-04-22 06:32] LABS: PLATELET COUNT 92 10^3/uL (150-450)
[2018-04-22] MEDS: FUROSEMIDE INJ/PF 40 MG/4 ML SDV IV SCH ×2 (10:54→21:12)
[2018-04-22] MEDS: ISOSORBIDE MONONITRATE 30 MG TAB.ER.24H PO SCH ×2 (10:54→21:12)
[2018-04-22] MEDS: LOSARTAN POTASSIUM 50 MG TABLET PO SCH (10:55)
[2018-04-22] MEDS: CARVEDILOL 3.125 MG TABLET PO SCH ×2 (10:55→21:12)
[2018-04-22] MEDS: POTASSIUM CHLORIDE 10 MEQ CAPSULE.ER PO SCH (10:55)
[2018-04-22] MEDS: APIXABAN 5 MG TABLET PO SCH (10:55)
[2018-04-22] MEDS: ALLOPURINOL 300 MG TABLET PO SCH (10:55)
[2018-04-22] MEDS: CHOLECALCIFEROL (D3) 1,000 UNIT TABLET PO SCH (10:55)
[2018-04-22] MEDS: ATORVASTATIN CALCIUM 40 MG TABLET PO SCH (10:55)
[2018-04-22] MEDS: DOXAZOSIN MESYLATE 4 MG TABLET PO SCH ×2 (10:55→18:25)
[2018-04-22] MEDS: ASPIRIN 81 MG TABLET, ENT COATED PO SCH (10:56)
--- NOTE | 2018-04-22 12:39 | PDOC PROGRESS REPORT ---
Subjective Progress Note for:: 04/22/18 Subjective:: Patient was admitted with difficulty breathing and shortness of breath. Patient says that he actually feels better today. He is breathing better. Echocardiogram done revealed an ejection fraction of 20% and result was discussed with patient. He will need to CHF teaching. Reason For Visit: SUSPECTED ACUTE DECOMPENSATED HEART FAILURE Physical Exam Vital Signs: Temp Pulse Resp BP Pulse Ox 97.3 F 75 16 118/63 94 04/22/18 11:14 04/22/18 11:14 04/22/18 11:14 04/22/18 11:14 04/22/18 11:14 Intake & Output 04/21/18 04/22/18 04/23/18 06:59 06:59 06:59 Intake Total 2065 876 Output Total 3050 2550 Balance -985 -1674 Weight 117.8 kg 116.1 kg General appearance: PRESENT: no acute distress, obese, well-developed, well- nourished Head exam: PRESENT: atraumatic, normocephalic Eye exam: PRESENT: conjunctiva pink, EOMI, PERRLA. ABSENT: scleral icterus Ear exam: PRESENT: normal external ear exam Mouth exam: PRESENT: moist, tongue midline Neck exam: ABSENT: carotid bruit, JVD, lymphadenopathy, thyromegaly Respiratory exam: PRESENT: rhonchi, unlabored. ABSENT: rales, tachypnea, wheezes Cardiovascular exam: PRESENT: RRR, +S1, +S2. ABSENT: diastolic murmur, rubs, systolic murmur Pulses: PRESENT: normal dorsalis pedis pul Vascular exam: PRESENT: normal capillary refill GI/Abdominal exam: PRESENT: normal bowel sounds, soft. ABSENT: distended, guarding, mass, organolmegaly, rebound, tenderness Rectal exam: PRESENT: deferred Extremities exam: PRESENT: full ROM, +2 edema. ABSENT: calf tenderness, clubbing, pedal edema Musculoskeletal exam: PRESENT: ambulatory Neurological exam: PRESENT: alert, awake, oriented to person, oriented to place , oriented to time, oriented to situation, CN II-XII grossly intact. ABSENT: motor sensory deficit Psychiatric exam: PRESENT: appropriate affect, normal mood. ABSENT: homicidal ideation, suicidal ideation Skin exam: PRESENT: dry, intact, warm. ABSENT: cyanosis, rash Results Laboratory Results: 04/22/18 05:24 04/21/18 04:24 04/22/18 05:24 WBC 6.4 RBC 4.20 L Hgb 13.5 Hct 39.9 MCV 95 MCH 32.1 MCHC 33.8 RDW 14.2 H Plt Count 92 L Seg Neutrophils % 65.7 Lymphocytes % 21.9 Monocytes % 9.2 Eosinophils % 2.5 Basophils % 0.7 Absolute Neutrophils 4.2 Absolute Lymphocytes 1.4 Absolute Monocytes 0.6 Absolute Eosinophils 0.2 Absolute Basophils 0.0 04/20/18 04/20/18 04/21/18 16:16 22:20 04:24 Troponin I 0.047 0.068 0.072 Impressions: Chest X-Ray 04/20/18 13:28 IMPRESSION: Small to moderate right pleural effusion with right lower lobe airspace disease Chest/Abdomen CTA 04/20/18 14:29 IMPRESSION: 1. Moderate right-sided pleural effusion with atelectasis at the right lower lobe, limiting evaluation for pulmonary emboli at the right lower lobe. No evidence for central pulmonary emboli or pulmonary emboli at the left lung. If clinical concern persists, a ventilation-perfusion scan or a follow- up CT angiogram chest can be obtained. 2. Subsegmental atelectasis at the right upper lobe and right middle lobe. 3. Small left pleural effusion. 4. Stable 6 mm bilobed pulmonary nodule at the anterior right upper lobe, suggestive of benign etiology. 5. Cardiomegaly. 6. Left adrenal myelolipoma. Assessment & Plan - Diagnosis (1) Cardiomyopathy Qualifiers: Cardiomyopathy type: unspecified Qualified Code(s): I42.9 - Cardiomyopathy , unspecified Is this a current diagnosis for this admission?: Yes - Time Time Spent with patient: 15-24 minutes Medications reviewed and adjusted accordingly: Yes Anticipated discharge: Home Within: within 24 hours - Inpatient Certification Based on my medical assessment, after consideration of the patient's comorbidities, presenting symptoms, or acuity I expect that the services needed warrant INPATIENT care.: Yes Medical Necessity: Need Close Monitoring Due to Risk of Patient Decompensation, Risk of Complication if Not Cared For in Hospital - Plan Summary Plan Summary: Acute combined systolic and diastolic CHF [place] Heart Association class III. Patient continues on IV Lasix, Coreg aspirin and statin. Patient does follow- up with Dr. Perdomo as outpatient and at this time it appears no further acute evaluation by paratransit driver as needed. Due to his echocardiogram he may need evaluation for a LifeVest or AICD but I will leave this to his paratransit driver as outpatient. 2. Right-sided pleural effusion likely secondary to CHF. With no respiratory compromise days no further interventions needed. We will continue with the diuretics. 3. Acute respiratory failure, multifactorial secondary to above improving 4. Elevated troponin likely secondary to demand mismatch. There is no evidence of an acute coronary syndrome. 5. We will continue with diuresis as tolerated and plan for follow-up outpatient cardiology. 6. CARDIOMYOPATHY, ? ISCHEMIC
[2018-04-23] MEDS: ATORVASTATIN CALCIUM 40 MG TABLET PO SCH (09:15)
[2018-04-23] MEDS: ISOSORBIDE MONONITRATE 30 MG TAB.ER.24H PO SCH (09:15)
[2018-04-23] MEDS: CARVEDILOL 3.125 MG TABLET PO SCH (09:16)
[2018-04-23] MEDS: DOXAZOSIN MESYLATE 4 MG TABLET PO SCH (09:16)
[2018-04-23] MEDS: LOSARTAN POTASSIUM 50 MG TABLET PO SCH (09:16)
[2018-04-23] MEDS: ALLOPURINOL 300 MG TABLET PO SCH (09:16)
[2018-04-23] MEDS: CHOLECALCIFEROL (D3) 1,000 UNIT TABLET PO SCH (09:16)
[2018-04-23] MEDS: ASPIRIN 81 MG TABLET, ENT COATED PO SCH (09:16)
[2018-04-23] MEDS: POTASSIUM CHLORIDE 10 MEQ CAPSULE.ER PO SCH (09:16)
[2018-04-23] MEDS: APIXABAN 5 MG TABLET PO SCH (09:16)
[2018-04-23] MEDS: FUROSEMIDE INJ/PF 40 MG/4 ML SDV IV SCH (09:16)
--- NOTE | 2018-04-23 15:11 | PDOC DISCHARGE SUMMARY ---
General - Admit/Disc Date/PCP Admission Date/Primary Care Provider: 04/20/18 15:[facility] Discharge Date: 04/23/18 - Discharge Diagnosis (1) Cardiomyopathy Is this a current diagnosis for this admission?: Yes - Additional Information Discharge Diet: Cardiac Discharge Activity: Activity As Tolerated, Balance Activity w/Rest, Weigh Daily Prescriptions: Carvedilol [Coreg 3.125 mg Tablet] 3.125 mg PO Q12 #60 tablet Home Medications: Cholecalciferol (Vitamin D3) [Vitamin D] 1,000 unit PO DAILY 04/12/11 Doxazosin Mesylate [Cardura] 4 mg PO BID 04/12/11 Irbesartan [Avapro] 150 mg PO DAILY 04/12/11 Isosorbide Mononitrate [Ismo] 30 mg PO DAILY 04/12/11 Nitroglycerin [Nitrostat 0.4 mg (1/150 Gr) Tabs 25/Bottle] 0.4 mg SL PRN PRN 12/04 Potassium Chloride [Klor-Con 10 Meq Capsule ER] 10 meq PO Q12 04/12/11 Allopurinol [Zyloprim] 300 mg PO DAILY 12/07/17 Apixaban [Eliquis] 5 mg PO DAILY 12/07/17 Atorvastatin Calcium [Lipitor 40 mg Tablet] 40 mg PO QHS 12/07/17 Aspirin [Ecotrin 81 mg EC Tablet] 81 mg PO DAILY 04/20/18 Carvedilol [Coreg 3.125 mg Tablet] 3.125 mg PO Q12 #60 tablet 04/23/18 Furosemide [Lasix 40 mg Tablet] 40 mg PO QAM #0 04/23/18 History of Present Illness Patient complains of: Difficulty breathing History of Present Illness: TANNER JOSE is a 82 year old male with a history of coronary artery disease with UT x3, status post CABG, and chronic atrial fibrillation who presents with a 3-week history of progressive dyspnea, especially with exertion. He has not had any fever. He said recently he has developed a cough. It has not been productive. He said for the last several months he usually has some swelling around his ankles but it has gotten worse recently. He says he cannot lay down flat without his shortness of breath getting worse. He says that he will sometimes use his CPAP during the day to help him catch his breath. He is not a very good historian, but he does not recall anyone telling him that he has heart failure. He cannot remember his seam feller name. His labs were fairly unremarkable with the exception of a very mildly elevated troponin, but his chest film shows what looks like a right-sided pleural effusion with some compressive atelectasis, and also some bilateral interstitial markings that look like pulmonary edema. Hospital Course Hospital Course: Patient was started on intravenous Lasix as well as nitrates. Echocardiogram was done which revealed an ejection fraction of 20%. Left ventricular systolic function is severely reduced with a severe global hypo-kinesis of the left ventricle. In short patient has severely had a myopathy. It appears this is a known issue. Patient follows with Dr. Perdomo as outpatient. Patient is aware of the need to follow-up as outpatient for further referrals and possible AICD if needed however I would leave this to the Dr. Perdomo to decide how to proceed given at this gentleman's comorbidity. He was given CHF teaching and advised on best practices to manage his CHF. Physical Exam Vital Signs: Temp Pulse Resp BP Pulse Ox 97.1 F 60 19 101/53 L 94 04/23/18 11:38 04/23/18 11:38 04/23/18 13:52 04/23/18 11:38 04/23/18 13:52 Intake & Output 04/22/18 04/23/18 04/24/18 06:59 06:59 06:59 Intake Total 876 870 236 Output Total 2550 1225 Balance -1674 -355 236 Weight 116.1 kg 114.5 kg General appearance: PRESENT: no acute distress, well-developed, well-nourished Head exam: PRESENT: atraumatic, normocephalic Eye exam: PRESENT: conjunctiva pink, EOMI, PERRLA. ABSENT: scleral icterus Ear exam: PRESENT: normal external ear exam Mouth exam: PRESENT: moist, tongue midline Neck exam: ABSENT: carotid bruit, JVD, lymphadenopathy, thyromegaly Respiratory exam: PRESENT: clear to auscultation enrique. ABSENT: rales, rhonchi, wheezes Cardiovascular exam: PRESENT: RRR, +S1, +S2. ABSENT: diastolic murmur, rubs, systolic murmur Pulses: PRESENT: normal dorsalis pedis pul Vascular exam: PRESENT: normal capillary refill GI/Abdominal exam: PRESENT: normal bowel sounds, soft. ABSENT: distended, guarding, mass, organolmegaly, rebound, tenderness Rectal exam: PRESENT: deferred Extremities exam: PRESENT: full ROM, pedal edema, +2 edema. ABSENT: calf tenderness, clubbing Musculoskeletal exam: PRESENT: ambulatory Neurological exam: PRESENT: alert, awake, oriented to person, oriented to place , oriented to time, oriented to situation, CN II-XII grossly intact. ABSENT: motor sensory deficit Psychiatric exam: PRESENT: appropriate affect, normal mood. ABSENT: homicidal ideation, suicidal ideation Skin exam: PRESENT: dry, intact, warm. ABSENT: cyanosis, rash Results Laboratory Results: 04/22/18 05:24 04/21/18 04:24 04/20/18 04/20/18 04/21/18 16:16 22:20 04:24 Troponin I 0.047 0.068 0.072 Impressions: Chest X-Ray 04/20/18 13:28 IMPRESSION: Small to moderate right pleural effusion with right lower lobe airspace disease Chest/Abdomen CTA 04/20/18 14:29 IMPRESSION: 1. Moderate right-sided pleural effusion with atelectasis at the right lower lobe, limiting evaluation for pulmonary emboli at the right lower lobe. No evidence for central pulmonary emboli or pulmonary emboli at the left lung. If clinical concern persists, a ventilation-perfusion scan or a follow- up CT angiogram chest can be obtained. 2. Subsegmental atelectasis at the right upper lobe and right middle lobe. 3. Small left pleural effusion. 4. Stable 6 mm bilobed pulmonary nodule at the anterior right upper lobe, suggestive of benign etiology. 5. Cardiomegaly. 6. Left adrenal myelolipoma. Qualifiers - * PATIENT BEING DISCHARGED WITH ANY OF THE FOLLOWING DIAGNOSIS: Heart Failure HF Pt being discharged on ACEI for LVEF less than 40%?: No Reason(s) for not prescribing ACEI:: Not indicated HF Pt being discharged on ARBS for LVEF less than 40%?: Yes HF Pt with Afib discharged with Warfarin?: Yes HF Pt discharged on evidence-based Beta Nikko:: Yes Plan Discharge Plan: Follow-up with primary care physician and seam feller and adjustment of his medications including Lasix as appropriate Time Spent: Greater than 30 Minutes
[2018-04-23 15:24] VITALS: BP 122/61
== END 2018-04-23 16:14 | disposition home or self-care (01) | DRG 291 ==
LOC: ER 12:50 → EH 15:10 → 3S 16:38
PROVIDERS: ADMIT Internal Medicine; ATTEND Internal Medicine
PROC: 5A09457 Assistance with Respiratory Ventilation, 24-96 Consecutive Hours, Continuous Positive Airway Pressure (ICD-10-PCS; principal; 2018-04-20)
DX: I11.0 Hypertensive heart disease with heart failure (principal); J18.1 Lobar pneumonia, unspecified organism; Z68.41 Body mass index [BMI] 40.0-44.9, adult; I42.9 Cardiomyopathy, unspecified; I50.41 Acute combined systolic (congestive) and diastolic (congestive) heart failure; I25.10 Atherosclerotic heart disease of native coronary artery without angina pectoris; I48.2 Chronic atrial fibrillation; R91.1 Solitary pulmonary nodule; D17.79 Benign lipomatous neoplasm of other sites; E66.01 Morbid (severe) obesity due to excess calories; I25.2 Old myocardial infarction; Z79.899 Other long term (current) drug therapy; Z96.652 Presence of left artificial knee joint; Z95.1 Presence of aortocoronary bypass graft; Z95.810 Presence of automatic (implantable) cardiac defibrillator; Z79.82 Long term (current) use of aspirin; Z88.2 Allergy status to sulfonamides; Z85.46 Personal history of malignant neoplasm of prostate
CPT/HCPCS: 36415; 71045; 71275; 80048; 80061; 80076; 83735; 83880; 84484; 85025; 87040; 93005; 93010; 93306; 94640; 94660; 99285; G8978-GP; G8979-GP; G8980-GP; J1940; J1956; J3490; J7620

== ENCOUNTER 2019-05-23 11:45 | Emergency (ER) | payer OTHER, MEDICARE ==
[2019-05-23] MEDS ORDERED: KETOROLAC TROMETHAMINE INJ/PF 30 MG/1 ML SDV IM ONE (13:35)
--- NOTE | 2019-05-23 13:40 | ER Document Report ---
HPI - HPI Time Seen by Provider: 05/23/19 13:25 Pain Level: 4 Notes: Patient is an 83-year-old male with a history of coronary disease, degenerative joint disease who presents complaining of acute on chronic left buttock pain over the past couple months. Patient states that over the past several days it is been getting worse. Patient states that pressure in the area makes the pain worse. Denies any new injury. Patient states that he does take Motrin twice daily otherwise. He is able to eat and drink without difficulty. He is urinating normally and having normal bowel movements. No other concerns or complaints. Denies any headache, fever, neck pain, URI, sore throat, chest pain, palpitations, syncope, cough, shortness of breath, wheeze, dyspnea, abdominal pain, nausea/vomiting/diarrhea, urinary retention, dysuria, hematuria, loss of control of bowel or bladder, numbness/tingling, saddle anesthesia, muscle paralysis/weakness, or rash. - ROS Systems Reviewed and Negative: Yes All other systems reviewed and negative - REPRODUCTIVE Reproductive: DENIES: : Past Medical History - Social History Smoking Status: Unknown if Ever Smoked Frequency of alcohol use: None Drug Abuse: None Family History: Reviewed & Not Pertinent Patient has suicidal ideation: No Patient has homicidal ideation: No - Past Medical History Cardiac Medical History: Reports: Hx Heart Attack - 1981 , Hx Hypertension - MEDICATED Pulmonary Medical History: Denies: Hx Asthma, Hx Bronchitis, Hx COPD, Hx Pneumonia Neurological Medical History: Denies: Hx Cerebrovascular Accident, Hx Seizures Renal/ Medical History: Denies: Hx Peritoneal Dialysis Malignancy Medical History: Reports Hx Prostate Cancer GI Medical History: Denies: Hx Hepatitis, Hx Hiatal Hernia, Hx Ulcer Musculoskeletal Medical History: Denies Hx Arthritis Infectious Medical History: Denies: Hx Hepatitis Past Surgical History: Reports: Hx Abdominal Surgery - hernia, colonoscopy, Hx Appendectomy, Hx Cardiac Surgery - CABG X 3, stent, cardiac cath, Hx Open Heart Surgery - TRIPLE BYPASS, Hx Orthopedic Surgery - left knee, right and left ankle, Hx Testicular Surgery - vasectomy, Hx Tonsillectomy. Denies: Hx Pacemaker - Immunizations Hx Diphtheria, Pertussis, Tetanus Vaccination: Yes Vertical Provider Document - CONSTITUTIONAL Agree With Documented VS: Yes Notes: PHYSICAL EXAMINATION: GENERAL: Well-appearing, well-nourished and in no acute distress. LUNGS: Breath sounds clear to auscultation bilaterally and equal. No wheezes rales or rhonchi. HEART: Regular rate and rhythm without murmurs, rubs, gallops. ABDOMEN: Soft, nontender, nondistended abdomen. No guarding, no rebound. Normal bowel sounds present. No CVA tenderness bilaterally. No pulsatile mass Musculoskeletal: LE's b/l: FROM to passive/active. Strength 5+/5. No deficits noted. No bony tenderness of extremities. Back: FROM to passive/active. Strength 5+/5. No vertebral point tenderness, stepoffs, or deformities. No other bony tenderness, erythema, swelling, or ec chymosis. SLR negative b/l. + mild tenderness to the lt mid buttock near ischium. No SI jt tenderness. No foot drop Extremities: No cyanosis, clubbing, or edema b/l. Peripheral pulses 2+. Capi llary refill less than 2 seconds. NEUROLOGICAL: Normal speech, limping gait. Normal sensory, motor exams. Reflexes 2+ b/l. PSYCH: Normal mood, normal affect. SKIN: Warm, Dry, normal turgor, no rashes or lesions noted. - INFECTION CONTROL TRAVEL OUTSIDE OF THE [place] IN LAST 30 DAYS: No Course - Re-evaluation Re-evalutation: 05/23/19 Patient is an afebrile, well-hydrated, 83-year-old male who presents to the ED with acute on chronic left buttock pain. Vitals are acceptable. PE is o therwise unremarkable for any focal neurological deficits. X-ray was unremarkable for any acute pathology. Patient was given Toradol. He has no significant tachycardia, tachypnea, or hypoxia. He is nontoxic-appearing and is tolerating p.o. without difficulties. There are no signs of infection. No other red flag symptoms noted. No other labs or imaging warranted at this time based on H&P. Low suspicion for any meningitis, fracture, expanding/ruptured AAA, cauda equina syndrome, epidural mass lesion/abscess, herniated disc causing severe spinal stenosis, or other systemic infection at this time. Patient is aware that his condition can change from initial presentation and that he needs monitor symptoms closely for any acute changes. I will send him home with a prescription for voltaren. Conservative measures otherwise for symptoms. Recheck with your PCM in 3-5 days. Consider consult with pain management/orthopedic/physical therapy. Return to the ED with any worsening/concerning symptoms otherwise as reviewed discharge. Patient is in agreement. - Vital Signs Vital signs: Temp Pulse Resp BP Pulse Ox 97.6 F 80 16 154/68 H 95 05/23/19 12:23 05/23/19 12:23 05/23/19 12:23 05/23/19 12:23 05/23/19 12:23 Discharge - Discharge Clinical Impression: Left buttock pain Condition: Stable Disposition: HOME, SELF-CARE Additional Instructions: Rest, Ice Tylenol/ibuprofen as needed Light stretches daily Strength exercises as able Moist heat and massage may help F/u with your PCP in 3-5 days for a recheck Consider consult(s) with Pain Management/Orthopedics/physical therapy for ongoing/worsening symptoms Return to the ED with any worsening symptoms and/or development of fever, headache, chest pain, palpitations, syncope, shortness of breath, trouble breathing, abdominal pain, n/v/d, blood in stool/urine, loss of control of bowel/bladder, urinary retention, muscle weakness/paralysis, saddle anesthesia, numbness/tingling, or other worsening symptoms that are concerning to you. Prescriptions: Diclofenac Sodium [Voltaren] 4 gm TP QID PRN #100 gel..gm. PRN Reason: Forms: Elevated Blood Pressure Referrals: [facility] [Primary Care Provider] - Follow up as needed BHASKAR URIBE MD [ACTIVE STAFF] - Follow up in 1 week
--- NOTE | 2019-05-23 14:56 | RADIOLOGY REPORT (SQ) ---
EXAM DESCRIPTION: PELVIS AP COMPLETED DATE/TIME: 05/23/2019 2:46 pm REASON FOR STUDY: left buttock pain COMPARISON: None. NUMBER OF VIEWS: One view TECHNIQUE: AP Pelvis LIMITATIONS: None. FINDINGS: MINERALIZATION: Normal. HIPS: No acute fracture or dislocation. PELVIS AND SACRUM: The sacrum is obscured by overlying bowel. PUBIS AND ISCHIUM: The ilioischial and iliopectineal lines are intact. There is no diastasis of the pubic symphysis. LOWER LUMBAR SPINE: Vacuum disc phenomena at L4-L5 and L5-S1. SOFT TISSUES: Surgical clips in the pelvis. OTHER: No other finding. IMPRESSION: No acute osseous abnormality of the pelvis. COMMENT: Pelvic fractures are often occult on plain radiographs. If strong clinical suspicion for f racture, recommend CT or MR. TECHNICAL DOCUMENTATION: JOB ID: [id number] [email or web address]- All Rights Reserved Reading location - IP/workstation name: [email or web address]
[2019-05-23 15:45] VITALS: BP 155/92
== END 2019-05-23 15:46 | disposition home or self-care (01) ==
LOC: ER 11:45
DX: M25.552 Pain in left hip (principal); G89.29 Other chronic pain; Z79.1 Long term (current) use of non-steroidal anti-inflammatories (NSAID); I10 Essential (primary) hypertension; Z85.46 Personal history of malignant neoplasm of prostate
CPT/HCPCS: 99283; 96372; 72170; J1885

== ENCOUNTER 2019-07-03 16:54 | Emergency (ER) | payer OTHER, MEDICARE ==
[2019-07-03] MEDS ORDERED: FUROSEMIDE INJ/PF 20 MG/2 ML SDV IV ONE (17:10)
[2019-07-03 17:17] LABS: ABSOLUTE EOSINOPHILS # (AUTO) 0.1 10^3/uL (0.0-0.6); ABSOLUTE LYMPHOCYTES (AUTO) 1.8 10^3/uL (0.5-4.7); ABSOLUTE MONOCYTES (AUTO) 0.7 10^3/uL (0.1-1.4); ABSOLUTE NEUT (AUTO) 4.1 10^3/uL (1.7-8.2); BASOPHILS % (AUTO) 0.6 % (0-2); EOSINOPHILS % (AUTO) 1.9 % (0-6); HEMATOCRIT 38.9 % (37.9-51.0); LYMPHOCYTES % (AUTO) 26.8 % (13-45); MEAN CORPUSCULAR HEMOGLOBIN 31.6 pg (27.0-33.4); MEAN CORPUSCULAR HGB CONC 33.4 g/dL (32.0-36.0); MEAN CORPUSCULAR VOLUME 95 fl (80-97); PLATELET COUNT 116 10^3/uL (150-450); RED CELL DISTRIBUTION WIDTH 16.1 % (11.5-14.0); SEGMENTED NEUTROPHILS % (AUTO) 60.7 % (42-78); TOTAL CELLS COUNTED % (AUTO) 100 %; WHITE BLOOD COUNT 6.7 10^3/uL (4.0-10.5)
--- NOTE | 2019-07-03 17:18 | ER Document Report ---
ED Respiratory Problem - General Chief Complaint: Shortness Of Breath Stated Complaint: TROUBLE BREATHING/WEAKNESS Time Seen by Provider: 07/03/19 17:02 Primary Care Provider: DELMA MARTINEZ [NO LOCAL MD] - Follow up as needed Mode of Arrival: Ambulatory Information source: Patient Notes: 83-year-old man presents to the emergency department with a complaint of shortness of breath and difficulty breathing. He has a history of a AICD, cardiomyopathy, CAD, stents in the past, lymphedema, and CPAP use. He describes fleeting chest pain and increasing shortness of breath with inability to talk in full sentences secondary to shortness of breath. He states his symptoms worsen over the past 2 days. TRAVEL OUTSIDE OF THE [place] IN LAST 30 DAYS: No - Related Data Allergies/Adverse Reactions: Sulfa (Sulfonamide Antibiotics) Allergy (Severe, Verified 04/20/18 16:02) Unable to urinate Past Medical History - Social History Smoking Status: Former Smoker Family History: Reviewed & Not Pertinent Patient has suicidal ideation: No Patient has homicidal ideation: No - Past Medical History Cardiac Medical History: Reports: Hx Heart Attack - 1981 , Hx Hypertension - MEDICATED Pulmonary Medical History: Denies: Hx Asthma, Hx Bronchitis, Hx COPD, Hx Pneumonia Neurological Medical History: Denies: Hx Cerebrovascular Accident, Hx Seizures Renal/ Medical History: Denies: Hx Peritoneal Dialysis Malignancy Medical History: Reports Hx Prostate Cancer GI Medical History: Denies: Hx Hepatitis, Hx Hiatal Hernia, Hx Ulcer Musculoskeletal Medical History: Denies Hx Arthritis Infectious Medical History: Denies: Hx Hepatitis Past Surgical History: Reports: Hx Abdominal Surgery - hernia, colonoscopy, Hx Appendectomy, Hx Cardiac Surgery - CABG X 3, stent, cardiac cath, Hx Open Heart Surgery - TRIPLE BYPASS, Hx Orthopedic Surgery - left knee, right and left ankle, Hx Testicular Surgery - vasectomy, Hx Tonsillectomy. Denies: Hx Pacemaker - Immunizations Hx Diphtheria, Pertussis, Tetanus Vaccination: Yes Review of Systems - Review of Systems Notes: Constitutional: Negative for fever. HENT: Negative for sore throat. Eyes: Negative for visual changes. Cardiovascular: + chest pain. Respiratory: + shortness of breath. Gastrointestinal: Negative for abdominal pain, vomiting or diarrhea. Genitourinary: Negative for dysuria. Musculoskeletal: Negative for back pain. Skin: Negative for rash. Neurological: Negative for headaches, weakness or numbness. 10 point ROS negative except as marked above and in HPI. Physical Exam - Vital signs Vitals: Resp Pulse Ox 23 H 100 07/03/19 16:59 07/03/19 16:59 - Notes Notes: PHYSICAL EXAMINATION: Physical Exam: General: Frail 83-year-old man in respiratory distress HEENT: NC/AT, pupils equal round and reactive to light, MM moist,nares clear, + JVD pulse Neck: supple, no adenopathy, no masses. Lungs: Using accessory muscle respiration, bilateral rales, unable to move significant air CVS: Regular rate and rhythm no murmur gallop or rub Abdomen: Soft active nontender, no masses, no hepatosplenomegaly Ext: + Bilateral edema diffusely in the lower extremities Neuro: Alert and responsive, moving all 4 extremities on command, cranial nerves intact. Skin: Intact no open lesions, no rash PSYCH: Normal mood, normal affect. Course - Re-evaluation Re-evalutation: 07/03/19 21:55 Patient has been given Lasix in the emergency department and is diuresed approximately 900 cc of fluid and is feeling much better able now to talk in full sentences and has been ambulating to and from the bathroom. He continues to have some associated dyspnea. 07/04/19 03:05 Discussed the patient with the hospitalist, felt that the patient has chronic CHF poor ejection fraction and chronically elevated troponin. He is resting quietly with no acute distress and ABG does not reflect acidosis, hypercapnia, or hypoxia. I discussed with the patient being discharged home and he stated that he would call his son. He was unable to reach his son and will be held in the emergency department as a social hold until he can get a ride home. - Vital Signs Vital signs: Temp Pulse Resp BP Pulse Ox 97.7 F 20 119/52 L 97 07/03/19 21:15 07/04/19 02:01 07/04/19 02:01 07/04/19 02:01 - Laboratory Result Diagrams: 07/03/19 16:03 07/03/19 16:03 Laboratory results interpreted by me: 07/03/19 07/03/19 07/03/19 16:03 16:03 16:03 RBC 4.10 L Hgb 13.0 L RDW 16.1 H Plt Count 116 L ABG pO2 ABG O2 Saturation Carbon Dioxide 32 H BUN 23 H Creatine Kinase 53 L NT-Pro-B Natriuret Pep 5910 H Total Protein 6.1 L Albumin 3.2 L 07/03/19 22:10 RBC Hgb RDW Plt Count ABG pO2 129.3 H ABG O2 Saturation 98.7 H Carbon Dioxide BUN Creatine Kinase NT-Pro-B Natriuret Pep Total Protein Albumin - Diagnostic Test Radiology reviewed: Image reviewed, Reports reviewed - Chest x-ray: Cardiomegaly with pleural effusion and vascular congestion. - EKG Interpretation by Me Rhythm: A.Fib - Controlled rate of 58 Discharge - Discharge Clinical Impression: Acute combined systolic and diastolic CHF, NYHA class 3 Cardiomyopathy Qualifiers: Cardiomyopathy type: unspecified Qualified Code(s): I42.9 - Cardiomyopathy, unspecified Dyspnea Qualifiers: Dyspnea type: unspecified Qualified Code(s): R06.00 - Dyspnea, unspecified Condition: Good Disposition: HOME, SELF-CARE Instructions: Congestive Heart Failure ([facility]) Additional Instructions: You were diagnosed with congestive heart failure tonight in the emergency department please continue your usual medications and follow-up with your regular physician as needed. You may return to the emergency department if your symptoms become worse or you have other concerns. Referrals: [facility] [NO LOCAL MD] - Follow up as needed
[2019-07-03 17:31] LABS: ALBUMIN 3.2 g/dL (3.5-5.0); ALKALINE PHOSPHATASE 94 U/L (38-126); ANION GAP 6 (5-19); ASPARTATE AMINO TRANSFERASE 18 U/L (17-59); BILIRUBIN,DIRECT 0.2 mg/dL (0.0-0.4); BILIRUBIN,TOTAL 0.8 mg/dL (0.2-1.3); BLOOD UREA NITROGEN 23 mg/dL (7-20); CALCIUM 8.9 mg/dL (8.4-10.2); CARBON DIOXIDE 32 mmol/L (22-30); CHLORIDE 104 mmol/L (98-107); CREATINE KINASE 53 U/L (55-170); GLUCOSE 104 mg/dL (75-110); POTASSIUM 4.1 mmol/L (3.6-5.0); TOTAL PROTEIN 6.1 g/dL (6.3-8.2)
[2019-07-03 17:43] LABS: CREATINE KINASE MB 2.14 ng/mL (<4.55)
[2019-07-03 17:50] LABS: TROPONIN I 0.06 ng/mL
--- NOTE | 2019-07-03 18:27 | RADIOLOGY REPORT (SQ) ---
EXAM DESCRIPTION: CHEST SINGLE VIEW COMPLETED DATE/TIME: 07/03/2019 4:30 pm REASON FOR STUDY: SOB COMPARISON: 04/20/2018 EXAM PARAMETERS: NUMBER OF VIEWS: One view. TECHNIQUE: Single frontal radiographic view of the chest acquired. RADIATION DOSE: NA LIMITATIONS: None. FINDINGS: LUNGS AND PLEURA: There is a small to moderate right pleural effusion with fluid in the ri ght fissure which is similar in appearance to previous examination. Compressive atelectasis/ consoli dation at the right lung base is unchanged. The left lung is clear. No pneumothorax. MEDIASTINUM AND HILAR STRUCTURES: No mediastinal mass. Mediastinal contour is normal. HEART AND VASCULAR STRUCTURES: Moderate cardiomegaly. Postoperative changes of prior CABG. No evide nce of pulmonary vascular congestion. BONES: No acute findings. HARDWARE: Left infraclavicular AICD new from prior exam. OTHER: No other significant finding. IMPRESSION: 1. Chronic right small to moderate pleural effusion with compressive atelectasis at the right lung ba se, stable from 2018. No evidence of acute cardiopulmonary disease. 2. Moderate cardiomegaly. TECHNICAL DOCUMENTATION: JOB ID: [id number] [employer]- All Rights Reserved Reading location - IP/workstation name: [email or web address]
[2019-07-03 18:53] LABS: APPEARANCE,URINE CLEAR; BILIRUBIN,URINE NEGATIVE (NEGATIVE); COLOR,URINE STRAW; GLUCOSE, URINE NEGATIVE (NEGATIVE); KETONES,URINE NEGATIVE (NEGATIVE); LEUKOCYTE ESTERASE,URINE NEGATIVE (NEGATIVE); NITRITE,URINE NEGATIVE (NEGATIVE); PROTEIN,URINE NEGATIVE (NEGATIVE); URINE SPECIFIC GRAVITY 1.008; UROBILINOGEN,URINE NEGATIVE mg/dL (<2.0)
--- NOTE | 2019-07-03 19:37 | EKG REPORT ---
SEVERITY:- ABNORMAL ECG - ATRIAL FIBRILLATION RUN OF VENTRICULAR PREMATURE COMPLEXES IVCD, CONSIDER ATYPICAL RBBB PROBABLE INFERIOR INFARCT, OLD : Confirmed by: Tasha العراقي MD 03-Jul-2019 19:35:57
[2019-07-03 22:31] LABS: ARTERIAL BLOOD BASE EXCESS 0 mmol/L; ARTERIAL BLOOD H2CO3 1.09 mmol/L (1.05-1.35); ARTERIAL BLOOD HCO3 23.8 mmol/L (20-24); ARTERIAL BLOOD O2 SATURATION 98.7 % (94-98); ARTERIAL BLOOD PCO2 36.1 mmHg (35-45); ARTERIAL BLOOD PH 7.44 (7.35-7.45); ARTERIAL BLOOD PO2 129.3 mmHg (80-100); ARTERIAL BLOOD TOTAL CO2 24.9 mmol/L (23-27)
[2019-07-03 22:32] LABS: ARTERIAL BLOOD FIO2 3L
[2019-07-04 05:53] VITALS: BP 120/50
== END 2019-07-04 05:51 | disposition home or self-care (01) ==
LOC: ER 16:54
DX: I11.0 Hypertensive heart disease with heart failure (principal); I50.41 Acute combined systolic (congestive) and diastolic (congestive) heart failure; I43 Cardiomyopathy in diseases classified elsewhere; R06.02 Shortness of breath; R07.9 Chest pain, unspecified; I25.10 Atherosclerotic heart disease of native coronary artery without angina pectoris; I25.2 Old myocardial infarction; Z95.5 Presence of coronary angioplasty implant and graft; Z95.810 Presence of automatic (implantable) cardiac defibrillator; Z95.1 Presence of aortocoronary bypass graft; Z87.891 Personal history of nicotine dependence; Z88.2 Allergy status to sulfonamides
CPT/HCPCS: 93005; 99285; 96374; 36415; 82553; 82803; 82550; 85025; 80053; 81001; 84484; 83880; 71045; 93010; J1940